=== PATIENT | female | born 1985 | race Caucasian/White ===

== ENCOUNTER → 2018-01-20 09:01 | Outpatient (CLI) | payer OTHER, SELFPAY ==
[2018-01-20 09:21] LABS: Absolute Lymphocyte Count 1.64 X10^3/ul (0.83-4.51); Absolute Neutrophil Count 1.9 X10^3/uL (2.0-7.7); Basophil# 0.05 X10^3/uL; Basophil% 1.2 % (0-1); Eosinophil# 0.13 X10^3/uL; Eosinophils% 3.2 % (0-5); Hematocrit 42.1 % (37-47); Hemoglobin 13.7 g/dl (12.0-15.0); Lymphocyte # 1.64 X10^3/ul (4.0); Lymphocyte % 40.1 % (19-41); Mean Corp Hgb Conc 32.5 g/gl (32-36); Mean Corpuscular Hgb 28.9 pg (27.0-32.0); Mean Corpuscular Volume 88.8 fL (81-99); Mean Platelet Vol. 9.4 fl (6.2-12.0); Monocyte# 0.37 X10^3/uL; Neutrophil # 1.89 X10^3/uL (2.7-7.7); Neutrophil % 46.3 % (47-70); Platelet Count 256 K/mm3 (150-450); RBC Distribution Width CV 12.9 % (11.6-14.6); RBC Distribution Width SD 41.7 fl (35.1-43.9); Red Blood Count 4.74 M/mm3 (4.2-5.4); White Blood Count 4.1 K/mm3 (4.4-11.0)
[2018-01-20 09:22] LABS: POSITIVE COUNT NO; POSITIVE DIFFERENTIAL NO; POSITIVE MORPHOLOGY NO
[2018-01-20 09:45] LABS: Estradiol 81.4 pg/mL; Iron 80 ug/dL (50-170); Thyroid Stim Hormone (TSH) 1.94 uIU/mL (0.358-3.74)
[2018-01-21 08:39] LABS: DHEA Sulfate 180.7 ug/dL (84.8-378.0)
[2018-01-22 09:48] LABS: Progesterone Level 0.32 ng/mL (See Comment); Vitamin B12 309 pg/mL (211-911); Vitamin D,25 Hydroxy 22.4 ng/mL (29.95-100.01)
[2018-01-24 17:48] LABS: Ferritin 37 ng/mL (8-252)
== END ==
PROVIDERS: Family Provider Family Medicine; PCP Family Medicine; Visit Provider Obstetrics & Gynecology
DX: E53.8 Deficiency of other specified B group vitamins (principal); R53.83 Other fatigue; R68.82 Decreased libido; Z09 Encounter for follow-up examination after completed treatment for conditions other than malignant neoplasm
CPT/HCPCS: 82306; 82533; 82607; 82627; 82670; 82728; 83540; 84144; 84403; 84443; 85025; 82626

== ENCOUNTER → 2018-02-28 20:00 | Outpatient (CLI) | payer OTHER, SELFPAY | PROVIDERS: Family Provider Family Medicine; PCP Family Medicine; Visit Provider Family Medicine | DX: G47.10 Hypersomnia, unspecified (principal) | CPT/HCPCS: 95810 ==

== ENCOUNTER → 2018-03-20 08:38 | Outpatient (CLI) | payer OTHER, SELFPAY ==
--- NOTE | 2018-03-20 08:45 | RAD_ITS ---
STUDY: X-RAY - ACUTE ABDOMINAL SERIES REASON FOR EXAM: Female, 33 years old. Abdominal pain and bloating. TECHNIQUE: Single view of the chest. Supine, and erect view(s) of the abdomen were obtained. COMPARISON: CT scan 12/17/2016. FINDINGS: The lungs are clear and expanded. Normal size heart. Normal mediastinum and luci. Normal visualized pulmonary arteries. Normal visualized aortic arch and descending thoracic aorta. There is a non-specific bowel gas pattern. The soft tissue structures of the abdomen and pelvis are unremarkable. Normal visualized osseous structures. RAD/Acute Abdomen Inc Chest IMPRESSION: Normal x-ray examination of the chest, abdomen, and pelvis. Electronically Signed: Sourav Rome MD at 17:00 EDT , Service support ,
== END ==
PROVIDERS: Family Provider Family Medicine; PCP Family Medicine; Visit Provider Family Medicine
DX: R10.9 Unspecified abdominal pain (principal)
CPT/HCPCS: 74022

== ENCOUNTER → 2018-05-28 09:54 | Outpatient (CLI) | payer OTHER, SELFPAY ==
[2018-05-28 10:55] LABS: Progesterone Level 11.92 ng/mL (See Comment)
[2018-05-28 10:56] LABS: Estradiol 111.4 pg/mL
== END ==
PROVIDERS: Family Provider Family Medicine; PCP Family Medicine; Visit Provider Obstetrics & Gynecology
DX: N93.8 Other specified abnormal uterine and vaginal bleeding (principal); R68.82 Decreased libido
CPT/HCPCS: 36415; 82670; 84144

== ENCOUNTER → 2018-07-20 16:53 | Outpatient (CLI) | payer OTHER, SELFPAY ==
[2018-07-20 17:26] LABS: Hematocrit 41.6 % (37-47); Hemoglobin 13.8 g/dl (12.0-15.0); Mean Corp Hgb Conc 33.2 g/gl (32-36); Mean Corpuscular Hgb 29.9 pg (27.0-32.0); Mean Corpuscular Volume 90.2 fL (81-99); Mean Platelet Vol. 9.2 fl (6.2-12.0); Platelet Count 279 K/mm3 (150-450); RBC Distribution Width CV 12.8 % (11.6-14.6); RBC Distribution Width SD 41.9 fl (35.1-43.9); Red Blood Count 4.61 M/mm3 (4.2-5.4); White Blood Count 6.9 K/mm3 (4.4-11.0)
[2018-07-20 17:28] LABS: Scan Indicated on CBC? Y/N NO
[2018-07-20 18:02] LABS: Ferritin 44 ng/mL (8-252); Iron 88 ug/dL (50-170); Thyroid Stim Hormone (TSH) 1.91 uIU/mL (0.358-3.74); Vitamin B12 478 pg/mL (211-911); Vitamin D,25 Hydroxy 32.8 ng/mL (29.95-100.01)
== END ==
PROVIDERS: Family Provider Family Medicine; PCP Family Medicine; Visit Provider Family Medicine
DX: D64.9 Anemia, unspecified (principal); E55.9 Vitamin D deficiency, unspecified; E53.8 Deficiency of other specified B group vitamins; R53.83 Other fatigue
CPT/HCPCS: 36415; 82306; 82607; 82728; 83540; 84443; 85027

== ENCOUNTER → 2018-10-16 16:18 | Outpatient (CLI) | payer OTHER, SELFPAY ==
[2018-10-16 19:25] LABS: Absolute Lymphocyte Count 3.24 X10^3/ul (0.83-4.51); Absolute Neutrophil Count 4.3 X10^3/uL (2.0-7.7); Basophil# 0.08 X10^3/uL; Basophil% 0.9 % (0-1); Eosinophil# 0.11 X10^3/uL; Eosinophils% 1.3 % (0-5); Hematocrit 43.6 % (37-47); Immature Platelet Fraction 0.7 % (1.0-7.9); Lymphocyte # 3.24 X10^3/ul (4.0); Lymphocyte % 38.4 % (19-41); Mean Corp Hgb Conc 32.1 g/gl (32-36); Mean Corpuscular Hgb 29.5 pg (27.0-32.0); Mean Platelet Vol. 9.2 fl (6.2-12.0); Monocyte# 0.67 X10^3/uL; Monocyte% 7.9 % (0-10); Neutrophil # 4.32 X10^3/uL (2.7-7.7); Neutrophil % 51.4 % (47-70); Platelet Count 290 K/mm3 (150-450); RBC Distribution Width CV 12.6 % (11.6-14.6); RBC Distribution Width SD 42.4 fl (35.1-43.9); Red Blood Count 4.74 M/mm3 (4.2-5.4); Reticulocyte Count 1.32 % (0.5-1.5); White Blood Count 8.4 K/mm3 (4.4-11.0)
[2018-10-16 19:26] LABS: POSITIVE COUNT NO; POSITIVE DIFFERENTIAL NO; POSITIVE MORPHOLOGY NO
[2018-10-16 19:49] LABS: Prothrombin Time (Protime)PT. 12.8 SECONDS (11.7-14.9)
[2018-10-16 19:53] LABS: Erythrocyte Sedimentation Rate 2 mm/hr (0-20)
[2018-10-16 20:00] LABS: Vitamin B12 565 pg/mL (211-911); Vitamin D,25 Hydroxy 42.7 ng/mL (29.95-100.01)
[2018-10-16 20:08] LABS: ALB/GLOB Ratio 1.4 RATIO (0.9-2.4); AST(SGOT) 11 U/L (15-37); Alanine Aminotransfer ALT/SGPT 26 U/L (13-56); Alkaline Phosphatase 46 U/L (45-117); Anion Gap 9 (5-15); BUN 18 mg/dL (7-18); BUN/Creat Ratio 20.5 RATIO (10-20); Calcium,Total 8.8 mg/dL (8.5-10.1); Chloride 105 mmol/L (98-107); Creatinine, Serum 0.88 mg/dL (0.55-1.02); EST Glomerular Filtration Rate 79 mL/min (>60); Est Glom Filt Rate - Afr Amer 95 mL/min (>60); Ferritin 55 ng/mL (8-252); Globulin 2.9 g/dL (2.2-4.2); Glucose 67 mg/dL (74-106); Iron 113 ug/dL (50-170); Iron Binding Capacity,Total 304 ug/dL (250-450); Potassium 3.7 mmol/L (3.5-5.1); Protein, Total 6.9 g/dL (6.4-8.2); Sodium Level 144 mmol/L (136-145); Thyroid Stim Hormone (TSH) 1.83 uIU/mL (0.358-3.74)
--- OUTSIDE RECORDS SUMMARY | 2019-01-18 05:08 | XMS RPT_ITS ---
:1985 Author Organization [place] Support Name Relationship Address Phone BRADY, LORNE Unavailable [address] + [address] [place] [address] REINERS, BLANCA Unavailable [address] + [place] [address] SOEALOCSCH Unavailable [address] + [place] [address] DURSTINE, LORNE Unavailable [address] + [address] [place] [address] REINERS, BLANCA Unavailable [address] + [place] [address] SOEALOCSCH Unavailable [address] + [place] [address] DURSTINE, LORNE Unavailable [address] + [address] [place] [address] REINERS, BLANCA Unavailable [address] + [place] [address] SOEALOCSCH Unavailable [address] + [place] [address] DURSTINE, LORNE Unavailable [address] + [address] [place] [address] REINERS, BLANCA Unavailable [address] + [place] [address] SOEALOCSCH Unavailable [address] + [place] [address] DUNME Unavailable [address] + [place] [address] DURSTINE, LORNE Unavailable [address] + [address] [place] [address] REINERS, BLANCA Unavailable [address] + [place] [address] DUNME Unavailable [address] + [place] [address] DURSTINE, LORNE Unavailable [address] + [address] [place] [address] REINERS, BLANCA Unavailable [address] + [place] [address] DUNME Unavailable [address] + [place] [address] DURSTINE, LORNE Unavailable [address] + [address] [place] [address] REINERS, BLANCA Unavailable [address] + [place] [address] DUNME Unavailable [address] + [place] [address] DURSTINE, LORNE Unavailable [address] + [address] [place] [address] REINERS, BLANCA Unavailable [address] + [place] [address] Care Team Providers Name Role Phone CRISTINA GAMBOA Referring Unavailable CRISTINA GAMBOA Attending Unavailable ZACH CHEW Referring Unavailable CRISTINA GAMBOA Referring Unavailable BEE, CRISTINA Referring Unavailable BEE, FELICIANOMAN Referring Unavailable BEE, FELICIANOMAN Referring Unavailable CRISTINA GAMBOA Referring Unavailable Zach Chew Attending Unavailable Zach Chew Primary Care Unavailable Zach Chew Attending Unavailable Zach Chew Primary Care Unavailable Magalie Schwarz Attending Unavailable Zach Chew Primary Care Unavailable Magalie Schwarz Referring Unavailable Zach Chew Attending Unavailable Zach Chew Primary Care Unavailable Zach Chew Attending Unavailable Zach Chew Referring Unavailable Zach Chew Primary Care Unavailable Zach Chew Attending Unavailable Zach Chew Referring Unavailable Zach Chew Primary Care Unavailable Magalie Schwarz Attending Unavailable Magalie Schwarz Referring Unavailable Zach Chew Primary Care Unavailable Zach Chew Attending Unavailable Zach Chew Referring Unavailable Zach Chew Primary Care Unavailable [employer] Unavailable PROBLEMS PROBLEMS DATE TYPE CONDITION / CODE ATTENDING STATUS SOURCE 11/20/2018 Active Other iron NA Active [place] [facility] deficiency anemias [facility] / D50.8(ICD-10) [place] Repository 11/01/2018 Active Anemia, NA Active [facility] unspecified / Clinic Main D64.9(ICD-10) [place] Rep[facility] 11/01/2018 Active Vitamin B12 NA Active [facility] deficiency anemia, Clinic Main unspecified / [place] D51.9(ICD-10) Repository 11/01/2018 Active Hemorrhage, not NA Active [facility] elsewhere Clinic Main classified / [place] R58(ICD-10) Repository 10/25/2018 Unknown E16.2 - [place], Active [place] Hypoglycemia, [facility] unspecified / Hospital E16.2(ICD-10) Repository 07/20/2018 Unknown R53.83 - Other [place], Active [place] [facility] R53.83(ICD-10) Hospital Repository 07/20/2018 Unknown 780.79 - Other [place], Active [place] malaise [facility] 780.79(ICD-9) Repository 07/20/2018 Unknown D64.9 - Anemia, [place], Active [place] unspecified [facility] D64.9(ICD-10) Hospital Repository 07/20/2018 Unknown 285.9 - Anemia, [place], Active [place] unspecified / [facility] 285.9(ICD-9) Hospital Repository 07/20/2018 Unknown E55.9 - Vitamin D [place], Active [place] deficiency, [facility] E55.9(ICD-10) Repository 07/20/2018 Unknown 268.9 - [place], Active [place] Unspecified [facility] vitamin D Hospital deficiency / Repository 268.9(ICD-9) 07/20/2018 Unknown E53.8 - Deficiency [place], Active [place] of other specified [facility] B group vitamins / Hospital E53.8(ICD-10) Repository 07/20/2018 Unknown 266.2 - Other [place], Active [place] B-complex [facility] deficiencies / Hospital 266.2(ICD-9) Repository 05/28/2018 Unknown N93.8 - Other Magalie Schwarz Active [place] specified abnormal Community uterine and Hospital vaginal bleeding / Repository N93.8(ICD-10) 05/28/2018 Unknown R68.82 - Decreased Magalie Schwarz Active [place] libido / Community R68.82(ICD-10) Hospital Repository 03/20/2018 Unknown R10.9 - Jean Chew Unspecified [facility] abdominal pain / Hospital R10.9(ICD-10) Repository PROCEDURES PROCEDURES No Procedure Records FoundRESULTS RESULTS PROGRESS Observed: 11/01/2018 Status: COMPLETED Source: [place] 4:44 PM [facility] REPOSITORY HNO ID: [id number] Author: Cristina Gamboa Service: (none) Author Type: Physician Type: Progress Notes Filed: 11/02/2018 1:08 PM Note Text: Hematology and Medical Oncology PATIENT NAME: Sharyn Montez. CLINIC NO: [id number]. ATTENDING PHYSICIAN: Cristina Gamboa MD. DATE OF SERVICE:11/01/2018. DIAGNOSIS: History of iron deficiency anemia and spontaneous ecchymosis on her thighs. Consultation requested by Dr. Chew for an opinion regarding easy bruising. My final recommendations will be communicated back to the requesting physician by way of shared Medical record or letter to requesting physician via US mail. PERFORMANCE STATUS:100% HPI: This is a healthy 33-year-old lady with history of iron deficiency anemia and easy bruising. Patient had a partial hysterectomy several years ago for abnormal menstrual bleeding. she also had history of iron deficiency and vitamin B12 deficiency. She had GI evaluation 2 years ago with Drs. Villegas which included EGD and colonoscopy which were normal and she was negative for celiac disease. She noticed increased bruising after she was bitten at work by a patient last year. She also noticed spontaneous bruising mostly on the upper thighs in the last year. She is not taking aspirin or NSAIDs. She does not smoke or uses marijuana or illegal drugs. She does not even drink alcohol on a regular basis she has no history of thyroid disease, liver disease or hepatitis. She noted no other bleeding issues; epitaxis, bleeding gums, hematuria, hemoptysis, or rectal bleeding. She is on Progesterone and Sertraline. She is also concerned about an immature RET fraction AND immature platelet fraction on her lab tests; reticulocyte 1.3% ( normal ) MEDICATIONS: Current Outpatient Prescriptions: ferrous sulfate (IRON) 325 mg (65 mg iron) tablet Take 325 mg by mouth daily with breakfast. progesterone micronized (PROMETRIUM) 200 mg capsule Take 200 mg by mouth once daily. cholecalciferol (VITAMIN D-3) 5,000 unit tab Take 5,000 Units by mouth once daily. cyanocobalamin, vitamin B-12, (VITAMIN B-12 INJECTION) 1,000 mcg by INJECTION(UNSPECIFIED PARENTERAL ROUTES) route once every month. sertraline (ZOLOFT) 100 mg tablet Take 100 mg by mouth once daily. MONTELUKAST SODIUM (SINGULAIR ORAL) Take by mouth. levocetirizine dihydrochloride(XYZAL 5 MG TAB) Take one(1) tablet daily as needed. guaiFENesin (MUCINEX) 600 mg 12 hr tablet Take 2 tablets by mouth twice daily. (Patient not taking: Reported on 11/01/2018 ) budesonide(RHINOCORT AQUA 32 MCG/ACTUATION NASAL SPRAY) one to two sprays to each nostril once daily (Patient not taking: No sig reported) epinastine hcl(ELESTAT 0.05 % EYE DROPS) one to two drops to each eye twice daily as needed. (Patient not taking: No sig reported) No current facility-administered medications for this visit. . ALLERGIES: ALLERGIES Allergen Reactions - Amitriptyline Hcl Other: See Comments felt like a zombie - Environmental Aller* Cats, dogs, cattle, horses, dust mites, molds, trees, grasses, weeds, ragweed . PAST MEDICAL HISTORY: PAST MEDICAL HISTORY Diagnosis Date - Dysmenorrhea - External hemorrhoids without mention of complication - Hemorrhage of gastrointestinal tract, unspecified . PAST SURGICAL HISTORY: PAST SURGICAL HISTORY Procedure Laterality Date - ANESTH, SECTION - DANDC - HYSTERECTOMY HX - LAPAROSCOPY, SURGICAL, APPENDECTOMY 07/07/13 early appendicitis - NONE - SIGMOIDOSCOPY FLEX DIAG 04/27/09 - TUBAL LIGATION HX . FAMILY HISTORY: FAMILY HISTORY Problem Relation Age of Onset - Hyperlipidemia Mother - Hypertension Father - Hyperlipidemia Father - COPD Paternal Grandmother - Hypertension Paternal Grandfather - Cancer Maternal Grandfather kidney - Heart disease Maternal Grandfather - No Known Problems Sister - Cancer Maternal Grandmother uterine/stomach/bone . SOCIAL HISTORY:Social History Marital status: Spouse name: Lorne Years of education: Number of children: 0 Occupational History Occupation Employer Comment [employer]* [employer]* Social History Main Topics Smoking status: Former Smoker Packs/day: 0.50 Years: 7.00 Types: Cigarettes Smokeless tobacco: Never Used Alcohol use: No Drug use: No Sexual activity: Yes Partners with: Male control/protection: Pill REVIEW OF SYSTEMS: CONSTITUTIONAL: No fevers, chills, nightsweats, unintended weight loss HEENT: Denies frequent or severe heaches, nasal congestion/sinus symptoms, problematic allergy problems. EYES: No diplopia or blurry vision. CARDIOVASCULAR: No chest pain, dyspnea, palpitations, orthopnea, PND, ankle edema. PULM: No dyspnea, unexplained cough. GI: No dysphagia/odynophagia, problematic reflux, constipation, diarrhea, changes in stool habits, hematochezia, melena. : No new urinary complaints, including dysuria, gross hematuria or pyuria. NEURO: No new balance problems, peripheral weakness/paresthesias or numbness of concern. MUSC-SKEL: No new joint pain, swelling, or erythema. PSY: No concerns regarding depression, anxiety or panic. INTEGUMENTARY: No new skin changes (rash, new or changing mole, new growth) PHYSICAL EXAMINATION: 33-year-old well-nourished well-developed female in no acute distress BP 129/79 Pulse 97 Temp (Src) 98.7 (Temporal Artery) Ht 5' 3[verified by Joselin Best RN[ (1.60m) Wt 159 lb 8 oz (72.3kg) BMI 28.26 kg/(m2). HEENT: Head is normocephalic, atraumatic. Sclerae white, conjunctivae pink. PEERL. EOMs are intact. Oropharynx is benign. LYMPHATICS: There is no palpable adenopathy in the neck, supraclavicular region, axillae, or groin. LUNGS: Lungs are clear to percussion and auscultation. HEART: Heart is normal without murmurs, gallops, or rubs. ABDOMEN: Soft and nontender without organomegaly. No masses can be palpated. EXTREMITIES: Are without edema. no petechiae, small ecchymosis on her thighs NEUROLOGIC: Exam is physiologic LABORATORY DATA: Component Latest Ref Rng AND Units 11/01/2018 WBC, [place] 3.70 - 11.00 k/uL 5.65 RBC, [place] 3.90 - 5.20 m/uL 4.64 Hemoglobin, [place] 11.5 - 15.5 g/dL 13.9 Hematocrit, [place] 36.0 - 46.0 % 43.0 MCV, [place] 80.0 - 100.0 fL 92.7 MCH, [place] 26.0 - 34.0 pg 30.0 MCHC, [place] 30.5 - 36.0 g/dL 32.3 RDW, [place] 11.5 - 15.0 % 12.8 Platelet Cnt, [place] 150 - 400 k/uL 275 MPV, [place] 9.0 - 12.7 fL 9.1 Neut%, [place] % 51.0 Lymp%, [place] % 36.6 [place]%, [place] % 8.5 Eos%, [place] % 2.8 Baso%, [place] % 1.1 Abs Neut, [place] 1.45 - 7.50 k/uL 2.88 Abs Lymp, [place] 1.00 - 4.00 k/uL 2.07 Abs [place], [place] <0.87 k/uL 0.48 Abs Eos, [place] <0.46 k/uL 0.16 Abs Baso, [place] <0.11 k/uL 0.06 Component Latest Ref Rng AND Units 11/01/2018 Albumin 3.9 - 4.9 g/dL 4.4 Bilirubin, Total 0.2 - 1.3 mg/dL 0.5 Bilirubin, Conjug <0.2 mg/dL <0.2 Alkaline Phosphatase 34 - 123 U/L 50 AST 13 - 35 U/L 36 (H) ALT 7 - 38 U/L 27 Protein, Total 6.3 - 8.0 g/dL 6.7 Fib Clot 200 - 400 mg/dL 306 Hep C Antibody IA Negative Negative PT/INR 12.8/1.0, PTT 27.0 vitamin B12 478, TSH 1.91, iron 88, ferritin 44; Vitamin D 25 is 32.8 ASSESSMENT: 33-year-old female with spontaneous ecchymosis on both upper thighs consistent with repeated trauma. There is no evidence of coagulopathy, factor deficiency or platelet dysfunction. She has a normal reticulocyte count, and low immature RET AND PLT fraction are normal with normal CBC. However, increased bruising may be side- effects of medications; Progesterone and Sertraline. She is not at risk for spontaneous or internal bleeding. - localizing ecchymosis likely secondary to repeat trauma to her thighs causing spontaneous rupture of capillaries / superficial blood vessels. 2. history of anemia secondary to iron deficiency and vitamin B12 deficiency - Resolved on replacement. PLAN: - additional tests requested including: fibrinogen, liver function and hepatitis C antibody - Avoid aspirin - Check Hemoccult stool x 3 - If all her tests are normal, then no further evaluation is needed. - Follow-up with Dr. Villegas if her stool is heme occult positive. Continue iron supplement and vitamin B12 injection for her anemia. I spent 45 minutes in the visit, with more than 50% of the total [id number] time of the visit in counseling / coordination of care. Cristina Gamboa MD. ELECTRONICALLY SIGNED Cc: Dr. Ronald ZAMARRIPA CBC AND DIFF Collected: 11/01/2018 Status: F Source: [place] 4:10 PM [facility] REPOSITORY TYPE CODE TESTS RESULT OUT OF REFERENCE UNITS RANGE LAB WWBC 3.70-11.00 k/uL [place] WBC 5.65 LAB WRBC 3.90-5.20 m/uL [place] RBC 4.64 LAB WHGB 11.5-15.5 g/dL [place] Hemoglobin 13.9 LAB WHCT 36.0-46.0 % [place] Hematocrit 43.0 LAB WMCV 80.0-100.0 fL [place] MCV 92.7 LAB WMCH 26.0-34.0 pg [place] MCH 30.0 LAB WMCHC 30.5-36.0 g/dL [place] MCHC 32.3 LAB WRDW 11.5-15.0 % [place] RDW 12.8 LAB WPLT 150-400 k/uL [place] Platelet Cnt 275 LAB WMPV 9.0-12.7 fL [place] MPV 9.1 Result Comment: Test performed at: [facility] [place], [address] [place] [address]. LAB WNEUT % [place] Neut% 51.0 LAB WLYMP % [place] Lymp% 36.6 LAB WMONOC % [place]% 8.5 LAB WEOS % [place] Eos% 2.8 LAB WBASO % [place] Baso% 1.1 LAB WANEUT 1.45-7.50 k/uL [place] Abs Neut 2.88 LAB WALYMP 1.00-4.00 k/uL [place] Abs Lymp 2.07 LAB WAMONO <0.87 k/uL [place] Abs [place] 0.48 LAB WAEOS <0.46 k/uL [place] Abs Eos 0.16 LAB WABASO <0.11 k/uL [place] Abs Baso 0.06 HEPATIC FUNCTN PANEL Collected: 11/01/2018 Status: F Source: [place] 4:10 PM [facility] REPOSITORY TYPE CODE TESTS RESULT OUT OF REFERENCE UNITS RANGE LAB ALB 3.9-4.9 g/dL Albumin 4.4 LAB TBIL 0.2-1.3 mg/dL Bilirubin, Total 0.5 LAB CBIL <0.2 mg/dL Bilirubin,Conjuga <0.2 debbie LAB ALKP 34-123 U/L Alkaline Phosphatase 50 LAB AST 13-35 U/L AST High 36 LAB ALT 7-38 U/L ALT 27 LAB TP 6.3-8.0 g/dL Protein, Total 6.7 STAFF REV W CBCDIF Collected: 11/01/2018 Status: F Source: [place] 4:10 PM [facility] REPOSITORY TYPE CODE TESTS RESULT OUT OF REFERENCE UNITS RANGE LAB WBC 3.70-11.00 k/uL WBC 5.03 LAB RBC 3.90-5.20 m/uL RBC 4.66 LAB HGB 11.5-15.5 g/dL Hemoglobin 14.1 LAB HCT 36.0-46.0 % Hematocrit 43.3 LAB MCV 80.0-100.0 fL MCV 92.9 LAB MCH 26.0-34.0 pG MCH 30.3 LAB MCHC 30.5-36.0 g/dL MCHC 32.6 LAB RDWCV 11.5-15.0 % RDW-CV 12.2 LAB PLTCT 150-400 k/uL Platelet Count 297 LAB MPV 9.0-12.7 fL MPV 9.8 LAB ANEUT % Neut% 50.8 LAB AANEUT 1.45-7.50 k/uL Abs Neut 2.55 LAB ALYMP % Lymph% 36.4 LAB AALYMP 1.00-4.00 k/uL Abs Lymph 1.83 LAB AMONO % [place]% 8.0 LAB AAMONO <0.87 k/uL Abs [place] 0.40 LAB AEOS % Eosin% 3.6 LAB AAEOS <0.46 k/uL Abs Eosin 0.18 LAB ABASO % Baso% 1.2 LAB AABASO <0.11 k/uL Abs Baso 0.06 LAB AUNRBC 0 /100 WBC NRBCs 0.0 LAB ABNRBC <0.01 k/uL Absolute nRBC <0.01 LAB DTYP DTYPE Auto Diff LAB SREVW Staff Review SEE COMMENT Result Comment: The Staff Review on this sample was cancelled because the hematology analyzer did not flag any parameters as requiring manual review. If there is a specific clinical concern for which yo u would like a staff pathologist to review the blood smear, please call Lab Client Services within 28 days. Account Credited LAB SRPATH Pathologist The Staff Review on this sample was cancelled because the hematology analyzer did not flag any parameters as requiring manual review. If there is a specific clinical concern for which you would like a staff pathologist to review the blood smear, please call Lab Client Services within 28 days. Result Comment: Account Credited Performed By: #### STREV #### [facility] Your Office Agent [address] [address] FIBRINOGEN Collected: 11/01/2018 Status: F Source: [place] 4:10 PM [facility] REPOSITORY TYPE CODE TESTS RESULT OUT OF REFERENCE UNITS RANGE LAB FIBCT 200-400 mg/dL Fibrinogen 306 Performed By: #### FIBCT, AHCV #### [facility] [address] [address] HEPATITIS C AB IA Collected: 11/01/2018 Status: F Source: [place] 4:10 PM [facility] REPOSITORY TYPE CODE TESTS RESULT OUT OF REFERENCE UNITS RANGE LAB AHCV Negative Hepatitis C Ab Negative IA Performed By: #### FIBCT, AHCV #### [place] [id number] [place] [address] CNOVSP Observed: 11/01/2018 Status: COMPLETED Source: [place] 4:00 PM [facility] REPOSITORY Visit (SP) Office ([facility]MA[place]) SHARYN MONTEZ ([id number]) 1985 F Date Time Provider Department 11/01/18 4:00 PM CRISTINA GAMBOA During your visit today, we recorded the following information about you: Temperature Pulse Blood pressure Weight 98.7 degrees 97/minute 129/79 72.3 kg Height 1.6 m Bonny Peters LPN 11/01/2018 4:25 PM Signed New patient. Discuss recent labs, anemia. Bonny Gamboa MD 11/02/2018 1:08 PM Signed Hematology and Medical Oncology PATIENT NAME: Sharyn [place]. CLINIC NO: [id number]. ATTENDING PHYSICIAN: Cristina Gamboa MD. DATE OF SERVICE:11/01/2018. DIAGNOSIS: History of iron deficiency anemia and spontaneous ecchymosis on her thighs. Consultation requested by Dr. Chew for an opinion regarding easy bruising. My final recommendations will be communicated back to the requesting physician by way of shared Medical record or letter to requesting physician via [place] mail. PERFORMANCE STATUS:100% HPI: This is a healthy 33-year-old lady with history of iron deficiency anemia and easy bruising. Patient had a partial hysterectomy several years ago for abnormal menstrual bleeding. she also had history of iron deficiency and vitamin B12 deficiency. She had GI evaluation 2 years ago with Drs. Villegas which included EGD and colonoscopy which were normal and she was negative for celiac disease. She noticed increased bruising after she was bitten at work by a patient last year. She also noticed spontaneous bruising mostly on the upper thighs in the last year. She is not taking aspirin or NSAIDs. She does not smoke or uses marijuana or illegal drugs. She does not even drink alcohol on a regular basis she has no history of thyroid disease, liver disease or hepatitis. She noted no other bleeding issues; epitaxis, bleeding gums, hematuria, hemoptysis, or rectal bleeding. She is on Progesterone and Sertraline. She is also concerned about an immature RET fraction AND immature platelet fraction on her lab tests; reticulocyte 1.3% ( normal ) MEDICATIONS: Current Outpatient Prescriptions: ferrous sulfate (IRON) 325 mg (65 mg iron) tablet Take 325 mg by mouth daily with breakfast. progesterone micronized (PROMETRIUM) 200 mg capsule Take 200 mg by mouth once daily. cholecalciferol (VITAMIN D-3) 5,000 unit tab Take 5,000 Units by mouth once daily. cyanocobalamin, vitamin B-12, (VITAMIN B-12 INJECTION) 1,000 mcg by INJECTION(UNSPECIFIED PARENTERAL ROUTES) route once every month. sertraline (ZOLOFT) 100 mg tablet Take 100 mg by mouth once daily. MONTELUKAST SODIUM (SINGULAIR ORAL) Take by mouth. levocetirizine dihydrochloride(XYZAL 5 MG TAB) Take one(1) tablet daily as needed. guaiFENesin (MUCINEX) 600 mg 12 hr tablet Take 2 tablets by mouth twice daily. (Patient not taking: Reported on 11/01/2018 ) budesonide(RHINOCORT AQUA 32 MCG/ACTUATION NASAL SPRAY) one to two sprays to each nostril once daily (Patient not taking: No sig reported) epinastine hcl(ELESTAT 0.05 % EYE DROPS) one to two drops to each eye twice daily as needed. (Patient not taking: No sig reported) No current facility-administered medications for this visit. . ALLERGIES: ALLERGIES Allergen Reactions - Amitriptyline Hcl Other: See Comments felt like a zombie - Environmental Aller* Cats, dogs, cattle, horses, dust mites, molds, trees, grasses, weeds, ragweed . PAST MEDICAL HISTORY: PAST MEDICAL HISTORY Diagnosis Date - Dysmenorrhea - External hemorrhoids without mention of complication - Hemorrhage of gastrointestinal tract, unspecified . PAST SURGICAL HISTORY: PAST SURGICAL HISTORY Procedure Laterality Date - ANESTH, SECTION - DANDC - HYSTERECTOMY HX - LAPAROSCOPY, SURGICAL, APPENDECTOMY 07/07/13 early appendicitis - NONE - SIGMOIDOSCOPY FLEX DIAG 04/27/09 - TUBAL LIGATION HX . FAMILY HISTORY: FAMILY HISTORY Problem Relation Age of Onset - Hyperlipidemia Mother - Hypertension Father - Hyperlipidemia Father - COPD Paternal Grandmother - Hypertension Paternal Grandfather - Cancer Maternal Grandfather kidney - Heart disease Maternal Grandfather - No Known Problems Sister - Cancer Maternal Grandmother uterine/stomach/bone . SOCIAL HISTORY:Social History Marital status: Spouse name: Lorne Years of education: Number of children: 0 Occupational History Occupation Employer Comment [employer]* [employer]* Social History Main Topics Smoking status: Former Smoker Packs/day: 0.50 Years: 7.00 Types: Cigarettes Smokeless tobacco: Never Used Alcohol use: No Drug use: No Sexual activity: Yes Partners with: Male control/protection: Pill REVIEW OF SYSTEMS: CONSTITUTIONAL: No fevers, chills, nightsweats, unintended weight loss HEENT: Denies frequent or severe heaches, nasal congestion/sinus symptoms, problematic allergy problems. EYES: No diplopia or blurry vision. CARDIOVASCULAR: No chest pain, dyspnea, palpitations, orthopnea, PND, ankle edema. PULM: No dyspnea, unexplained cough. GI: No dysphagia/odynophagia, problematic reflux, constipation, diarrhea, changes in stool habits, hematochezia, melena. : No new urinary complaints, including dysuria, gross hematuria or pyuria. NEURO: No new balance problems, peripheral weakness/paresthesias or numbness of concern. MUSC-SKEL: No new joint pain, swelling, or erythema. PSY: No concerns regarding depression, anxiety or panic. INTEGUMENTARY: No new skin changes (rash, new or changing mole, new growth) PHYSICAL EXAMINATION: 33-year-old well-nourished well-developed female in no acute distress BP 129/79 Pulse 97 Temp (Src) 98.7 (Temporal Artery) Ht 5' 3[verified by Joselin Best RN[ (1.60m) Wt 159 lb 8 oz (72.3kg) BMI 28.26 kg/(m2). HEENT: Head is normocephalic, atraumatic. Sclerae white, conjunctivae pink. PEERL. EOMs are intact. Oropharynx is benign. LYMPHATICS: There is no palpable adenopathy in the neck, supraclavicular region, axillae, or groin. LUNGS: Lungs are clear to percussion and auscultation. HEART: Heart is normal without murmurs, gallops, or rubs. ABDOMEN: Soft and nontender without organomegaly. No masses can be palpated. EXTREMITIES: Are without edema. no petechiae, small ecchymosis on her thighs NEUROLOGIC: Exam is physiologic LABORATORY DATA: Component Latest Ref Rng AND Units 11/01/2018 WBC, [place] 3.70 - 11.00 k/uL 5.65 RBC, [place] 3.90 - 5.20 m/uL 4.64 Hemoglobin, [place] 11.5 - 15.5 g/dL 13.9 Hematocrit, [place] 36.0 - 46.0 % 43.0 MCV, [place] 80.0 - 100.0 fL 92.7 MCH, [place] 26.0 - 34.0 pg 30.0 MCHC, [place] 30.5 - 36.0 g/dL 32.3 RDW, [place] 11.5 - 15.0 % 12.8 Platelet Cnt, [place] 150 - 400 k/uL 275 MPV, [place] 9.0 - 12.7 fL 9.1 Neut%, [place] % 51.0 Lymp%, [place] % 36.6 [place]%, [place] % 8.5 Eos%, [place] % 2.8 Baso%, [place] % 1.1 Abs Neut, [place] 1.45 - 7.50 k/uL 2.88 Abs Lymp, Albers 1.00 - 4.00 k/uL 2.07 Abs [place], [place] <0.87 k/uL 0.48 Abs Eos, Albers <0.46 k/uL 0.16 Abs Baso, Al[place] <0.11 k/uL 0.06 Component Latest Ref Rng AND Units 11/01/2018 Albumin 3.9 - 4.9 g/dL 4.4 Bilirubin, Total 0.2 - 1.3 mg/dL 0.5 Bilirubin, Conjug <0.2 mg/dL <0.2 Alkaline Phosphatase 34 - 123 U/L 50 AST 13 - 35 U/L 36 (H) ALT 7 - 38 U/L 27 Protein, Total 6.3 - 8.0 g/dL 6.7 Fib Clot 200 - 400 mg/dL 306 Hep C Antibody IA Negative Negative PT/INR 12.8/1.0, PTT 27.0 vitamin B12 478, TSH 1.91, iron 88, ferritin 44; Vitamin D 25 is 32.8 ASSESSMENT: 33-year-old female with spontaneous ecchymosis on both upper thighs consistent with repeated trauma. There is no evidence of coagulopathy, factor deficiency or platelet dysfunction. She has a normal reticulocyte count, and low immature RET AND PLT fraction are normal with normal CBC. However, increased bruising may be side- effects of medications; Progesterone and Sertraline. She is not at risk for spontaneous or internal bleeding. - localizing ecchymosis likely secondary to repeat trauma to her thighs causing spontaneous rupture of capillaries / superficial blood vessels. 2. history of anemia secondary to iron deficiency and vitamin B12 deficiency - Resolved on replacement. PLAN: - additional tests requested including: fibrinogen, liver function and hepatitis C antibody - Avoid aspirin - Check Hemoccult stool x 3 - If all her tests are normal, then no further evaluation is needed. - Follow-up with Dr. Villegas if her stool is heme occult positive. Continue iron supplement and vitamin B12 injection for her anemia. I spent 45 minutes in the visit, with more than 50% of the total [id number]-[id number] time of the visit in counseling / coordination of care. Cristina Gamboa MD. ELECTRONICALLY SIGNED Cc: Dr. Ronald Villegas Referring Provider: ZACH CHEW [[id number]] Allergies As of Date: 11/01/2018 Noted Allergy Reaction AMITRIPTYLINE HCL 11/01/2018 14 - Other: See Comments Comments: felt like a zombie Environmental allergies [Other] 04/09/2009 Comments: Cats, dogs, cattle, horses, dust mites, molds, trees, grasses, weeds, ragweed Date Reviewed: 11/01/2018 Reviewed by: Bonny Peters LPN - Fully Assessed Reason for Visit: New Patient [172] Primary Visit Diagnosis:Ecchymosis [R58] Other Visit Diagnoses:Iron deficiency anemia secondary to inadequate dietary iron intake [D50.8] Anemia due to vitamin B12 deficiency, unspecified B12 deficiency type [D51.9] Order(s):OCCULT BLD EXAM-DIAG [SQOB] Order #: [id number] STANDING HEPATIC FUNCTION PNL [SQHFP] Order #: [id number] FUTURE FIBRINOGEN [SQFIBCT] Order #: [id number] FUTURE HEP C AB IA BLOOD [SQAHCV] Order #: [id number] FUTURE Level of Service: NEW PATIENT VISIT LEVEL 4 [[id number]] Disposition: Return if symptoms worsen or fail to improve. Follow-up and Disposition History Recorded Prescriptions as of 11/01/2018 Sig: FERROUS SULFATE 325 MG (65 MG* Take 325 mg by mouth daily wi* PROGESTERONE MICRONIZED 200 M* Take 200 mg by mouth once dorian* CHOLECALCIFEROL (VITAMIN D3) * Take 5,000 Units by mouth onc* VITAMIN B-12 INJECTION 1,000 mcg by INJECTION(UNSPEC* SERTRALINE 100 MG TABLET Take 100 mg by mouth once dorian* SINGULAIR ORAL Take by mouth. * XYZAL 5 MG TABLET Take one(1) tablet daily as n* GUAIFENESIN ER 600 MG TABLET,* Take 2 tablets by mouth twice* Patient not taking: Reported on 11/01/2018 RHINOCORT AQUA 32 MCG/ACTUATI* one to two sprays to each nos* Patient not taking: No sig reported * ELESTAT 0.05 % EYE DROPS one to two drops to each eye * Patient not taking: No sig reported Medication notes this encounter SERTRALINE 100 MG TABLET >> Bonny Peters LPN 11/01/2018 4:17 PM >> BONNY PETERS LPN [facility] Nov 01, 2018 4:17 PM Taking 25 mg once a day SINGULAIR ORAL >> Bonny Peters LPN 11/01/2018 4:17 PM >> BONNY PETERS LPN [place] Nov 01, 2018 4:17 PM 10 mg XYZAL 5 MG TABLET >> Bonny Peters LPN 11/01/2018 4:17 PM >> BONNY PETERS LPN [place] Nov 01, 2018 4:17 PM Taking once a day Problem List As Of Date 11/01/2018 Noted Resolved 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 Discuss recent labs, anemia. Bonny Peters LPN Encounter Status:Closed by CRISTINA GAMBOA MD on 11/02/18 2 HR GLUCOSE TOLERANCE Collected: 11/01/2018 Status: F Source: [facility] TEST 10:07 AM [facility] REPOSITORY Order Comment: Is Patient Fasting? Y TYPE CODE TESTS RESULT OUT OF RANGE REFERENCE UNITS LAB L501.0520 74-106 mg/dL Normal GLU 85 GTT-FASTING Result Comment: GLUCOSE TOLERANCE TEST Reference Interval Non- Adults Fasting 74 - 106 30 minutes 110 - 170 1 hour 120 - 170 2 hour 74 - 120 3 hour 74 - 106 4 hour 74 - 106 5 hour 74 - 106 LAB L501.0630 110-170 mg/dL Low GLU GTT-30 min. 100 LAB L501.0540 120-170 mg/dL Low GLU GTT-1 HOUR 90 LAB L501.0550 70-120 mg/dL Normal GLU GTT-2 HOUR 77 Performed By: #### L500.4600 #### [facility] [place], [address] CBC W/DIFF, AUTOMATED Collected: 10/16/2018 Status: F Source: [place] 4:20 PM [facility] REPOSITORY TYPE CODE TESTS RESULT OUT OF RANGE REFERENCE UNITS LAB L100.1000 4.4-11.0 K/mm3 Normal WBC 8.4 LAB L100.1200 4.2-5.4 M/mm3 Normal RBC 4.74 LAB L100.1300 12.0-15.0 g/dl Normal HGB 14.0 LAB L100.1400 37-47 % Normal HCT 43.6 LAB L100.1500 81-99 fL Normal MCV 92.0 LAB L100.1600 27.0-32.0 pg Normal MCH 29.5 LAB L100.1700 32-36 g/gl Normal MCHC 32.1 LAB L100.1810 11.6-14.6 % Normal RDW CV 12.6 LAB L100.1820 35.1-43.9 fl Normal RDW SD 42.4 LAB L100.1900 150-450 K/mm3 Normal PLT 290 LAB L100.2000 6.2-12.0 fl Normal MPV 9.2 LAB L100.2100 47-70 % Normal NEUT% 51.4 LAB L100.2200 19-41 % Normal LY% 38.4 LAB L100.2300 0-10 % Normal MONO% 7.9 LAB L100.2400 0-5 % Normal EO% 1.3 LAB L100.2500 0-1 % Normal BASO% 0.9 LAB L100.2550 0.0-0.9 % Normal IM GRAN % 0.100 Result Comment: IG% - Immature Granulocytes (promyelocytes, myelocytes and metamyelocytes) > 1% indicates that a LEFT SHIFT is Present. LAB L100.2620 2.0-7.7 X10 3/uL Normal Absolute Neut 4.3 LAB L100.2720 0.83-4.51 X10 3/ul Normal Absolute Lymph 3.24 Performed By: #### L100.0100, L100.9950, L101.9900, L503.0105, L506.1000, L500.4050, L501.9520, L503.6075, L503.6150, L503.6550, L506.0250 #### [facility] [address] [place], [place], [id number] RETIC PANEL Collected: 10/16/2018 Status: F Source: [place] 4:20 PM [facility] REPOSITORY TYPE CODE TESTS RESULT OUT OF RANGE REFERENCE UNITS LAB L101.0000 0.5-1.5 % Normal RETIC 1.32 LAB L101.0060 3.00-15.90 % Low IM RET FRACTION 2.60 LAB L101.0090 30-35 pg Normal RET-HE 33.0 LAB L101.0110 1.0-7.9 % Low IPF 0.7 Result Comment: Low PLT + Low IPF suggest a bone marrow production disorder Low PLT + high IPF suggests peripheral destruction (e.g.ITP, TTP, HIT, DIC, autoimmune) or bone marrow recovery Trending of serial IPF measurements is recommended when evaluating for bone marrow respones Value above normal range indicates an increase in RBC cellular response from bone marrow. Performed By: #### L100.0100, L100.9950, L101.9900, L503.0105, L506.1000, L500.4050, L501.9520, L503.6075, L503.6150, L503.6550, L506.0250 #### [facility] [address] [place], [place], [id number] ERYTHROCYTE SED RATE Collected: 10/16/2018 Status: F Source: [place] 4:20 PM [facility] REPOSITORY TYPE CODE TESTS RESULT OUT OF RANGE REFERENCE UNITS LAB L102.0000 0-20 mm/hr Normal SED RATE 2 Performed By: #### L100.0100, L100.9950, L101.9900, L503.0105, L506.1000, L500.4050, L501.9520, L503.6075, L503.6150, L503.6550, L506.0250 #### [facility] [address] [place], [address] VITAMIN B12 Collected: 10/16/2018 Status: F Source: [place] 4:20 PM [facility] REPOSITORY TYPE CODE TESTS RESULT OUT OF RANGE REFERENCE UNITS LAB L503.0105 211-911 pg/mL Normal Vitamin B12 565 Performed By: #### L100.0100, L100.9950, L101.9900, L503.0105, L506.1000, L500.4050, L501.9520, L503.6075, L503.6150, L503.6550, L506.0250 #### [facility] [address] [place], [place], [id number] VITAMIN D,25 HYDROXY Collected: 10/16/2018 Status: F Source: [place] 4:20 PM [facility] REPOSITORY TYPE CODE TESTS RESULT OUT OF RANGE REFERENCE UNITS LAB L506.1000 29.95-100.01 ng/mL Normal Vitamin D 42.7 25-OH Result Comment: Vitamin D 25(OH) Status Range Deficiency <20 ng/mL (50nmol/L) Insuffciency 20 - 30 ng/mL (50 - 75 nmol/L) Sufficiency 30 - 100 ng/mL (75 - 250 nmol/L) Toxicity >100 ng/mL (>250 nmol/L) Performed By: #### L100.0100, L100.9950, L101.9900, L503.0105, L506.1000, L500.4050, L501.9520, L503.6075, L503.6150, L503.6550, L506.0250 #### [facility] [address] [place], [place], [address] COMPREHENSIVE METABOLIC Collected: 10/16/2018 Status: F Source: [facility] 4:20 PM [facility] REPOSITORY Order Comment: Is Patient Taking Vitamins or Folic Acid Supplements? N TYPE CODE TESTS RESULT OUT OF RANGE REFERENCE UNITS LAB L501.0100 74-106 mg/dL Low GLU 67 Result Comment: Please note revised GLUCOSE reference range effective 2017. LAB L501.1000 7-18 mg/dL Normal BUN 18 LAB L501.1100 0.55-1.02 mg/dL Normal CREAT,SERUM 0.88 Result Comment: The validity of the calculated GFR AND GFRAA in patients over 70 years has not been determined. Clinical correlation is essential. LAB L501.1110 >60 mL/min Normal EST GFR 79 Result Comment: Non- GFR Calc LAB L501.1115 >60 mL/min Normal EST GFR - AA 95 Result Comment: GFR Calc LAB L501.1300 10-20 RATIO High BUN/CRE 20.5 LAB L501.1500 6.4-8.2 g/dL T Normal PROT 6.9 LAB L501.1800 3.2-5.0 g/dL Normal ALB 4.0 LAB L501.1950 2.2-4.2 g/dL Normal GLOB 2.9 LAB L501.2000 0.9-2.4 RATIO Normal A/G 1.4 LAB L501.2200 8.5-10.1 mg/dL CA Normal 8.8 LAB L501.4100 15-37 U/L Low AST 11 LAB L501.4305 45-117 U/L Normal ALK P 46 LAB L501.4405 13-56 U/L Normal ALT 26 LAB L501.4600 0.20-1.00 mg/dL T Normal BILI 0.40 LAB L501.5300 136-145 mmol/L NA Normal 144 LAB L501.5600 3.5-5.1 mmol/L K Normal 3.7 LAB L501.5900 98-107 mmol/L CL Normal 105 LAB L501.6100 21.0-32.0 mmol/L Normal CO2 30.0 LAB L501.6200 5-15 Normal GAP 9 Performed By: #### L100.0100, L100.9950, L101.9900, L503.0105, L506.1000, L500.4050, L501.9520, L503.6075, L503.6150, L503.6550, L506.0250 #### [facility] [address] [place], [place], [address] THYROID STIM HORMONE Collected: 10/16/2018 Status: F Source: [facility] (TSH) 4:20 PM [facility] REPOSITORY Order Comment: Is Patient Taking Vitamins or Folic Acid Supplements? N TYPE CODE TESTS RESULT OUT OF RANGE REFERENCE UNITS LAB L501.9520 0.358-3.74 uIU/mL Normal TSH 1.83 Performed By: #### L100.0100, L100.9950, L101.9900, L503.0105, L506.1000, L500.4050, L501.9520, L503.6075, L503.6150, L503.6550, L506.0250 #### [facility] [address] [place], [place], [id number] IRON BINDING Collected: 10/16/2018 Status: F Source: [facility] 4:20 PM [facility] REPOSITORY Order Comment: Is Patient Taking Vitamins or Folic Acid Supplements? N TYPE CODE TESTS RESULT OUT OF RANGE REFERENCE UNITS LAB L503.6075 250-450 ug/dL Normal TIBC 304 Performed By: #### L100.0100, L100.9950, L101.9900, L503.0105, L506.1000, L500.4050, L501.9520, L503.6075, L503.6150, L503.6550, L506.0250 #### [facility] [address] [place], [address] IRON Collected: 10/16/2018 Status: F Source: [facility] 4:20 PM [facility] REPOSITORY Order Comment: Is Patient Taking Vitamins or Folic Acid Supplements? N TYPE CODE TESTS RESULT OUT OF RANGE REFERENCE UNITS LAB L503.6150 50-170 ug/dL Normal IRON 113 Performed By: #### L100.0100, L100.9950, L101.9900, L503.0105, L506.1000, L500.4050, L501.9520, L503.6075, L503.6150, L503.6550, L506.0250 #### [facility] [address] [place], [address] FERRITIN Collected: 10/16/2018 Status: F Source: [place] 4:20 PM [facility] REPOSITORY Order Comment: Is Patient Taking Vitamins or Folic Acid Supplements? N TYPE CODE TESTS RESULT OUT OF RANGE REFERENCE UNITS LAB L503.6550 8-252 ng/mL Normal FERRITIN 55 Performed By: #### L100.0100, L100.9950, L101.9900, L503.0105, L506.1000, L500.4050, L501.9520, L503.6075, L503.6150, L503.6550, L506.0250 #### [facility] [address] [place], [address] FOLATES, (FOLIC ACID) Collected: 10/16/2018 Status: F Source: [place] 4:20 PM [facility] REPOSITORY Order Comment: Is Patient Taking Vitamins or Folic Acid Supplements? N TYPE CODE TESTS RESULT OUT OF RANGE REFERENCE UNITS LAB L506.0250 3.1-55.4 ng/mL Normal FOLATES 19.50 Performed By: #### L100.0100, L100.9950, L101.9900, L503.0105, L506.1000, L500.4050, L501.9520, L503.6075, L503.6150, L503.6550, L506.0250 #### [facility] [address] [place], [address] PROTHROMBIN TIME W/INR Collected: 10/16/2018 Status: F Source: [place] 4:20 PM [facility] REPOSITORY TYPE CODE TESTS RESULT OUT OF RANGE REFERENCE UNITS LAB L300.4150 11.7-14.9 SECONDS Normal PROTIME 12.8 LAB L300.4200 Normal INR 1.0 Performed By: #### L300.3900, L300.4310 #### [facility] [address] [place], [address] PARTIAL THROMBOPLAST Collected: 10/16/2018 Status: F Source: [facility] 4:20 PM [facility] REPOSITORY TYPE CODE TESTS RESULT OUT OF RANGE REFERENCE UNITS LAB L300.4310 24.1-36.2 Seconds Normal PTT 27.0 Performed By: #### L300.3900, L300.4310 #### [facility] [address] [place], [place], [address] CBC-COMPLETE BLOOD CNT Collected: 07/20/2018 Status: F Source: [facility] NO DIFF 4:55 PM [facility] REPOSITORY Order Comment: Order Date: 07/18/18 Order Info: 18187-6 - CBC TYPE CODE TESTS RESULT OUT OF RANGE REFERENCE UNITS LAB L100.1000 4.4-11.0 K/mm3 Normal WBC 6.9 LAB L100.1200 4.2-5.4 M/mm3 Normal RBC 4.61 LAB L100.1300 12.0-15.0 g/dl Normal HGB 13.8 LAB L100.1400 37-47 % Normal HCT 41.6 LAB L100.1500 81-99 fL Normal MCV 90.2 LAB L100.1600 27.0-32.0 pg Normal MCH 29.9 LAB L100.1700 32-36 g/gl Normal MCHC 33.2 LAB L100.1810 11.6-14.6 % Normal RDW CV 12.8 LAB L100.1820 35.1-43.9 fl Normal RDW SD 41.9 LAB L100.1900 150-450 K/mm3 Normal PLT 279 LAB L100.2000 6.2-12.0 fl Normal MPV 9.2 Performed By: #### L100.0500, L501.9520, L503.6150, L503.6550, L503.0105, L506.1000 #### [facility] [address] [place], [place], [address] THYROID STIM HORMONE Collected: 07/20/2018 Status: F Source: [facility] (TSH) 4:55 PM [facility] REPOSITORY Order Comment: Order Date: 07/18/18 Order Info: 3016-3 - TSH Order Info: 2498-4 - FE Order Info: 2276-4 - HIREN TYPE CODE TESTS RESULT OUT OF RANGE REFERENCE UNITS LAB L501.9520 0.358-3.74 uIU/mL Normal TSH 1.91 Performed By: #### L100.0500, L501.9520, L503.6150, L503.6550, L503.0105, L506.1000 #### [facility] [address] [place], [place], [address] IRON Collected: 07/20/2018 Status: F Source: [place] 4:55 PM [facility] REPOSITORY Order Comment: Order Date: 07/18/18 Order Info: 3016-3 - TSH Order Info: 2494 - FE Order Info: 2275-4 - HIREN TYPE CODE TESTS RESULT OUT OF RANGE REFERENCE UNITS LAB L503.6150 50-170 ug/dL Normal IRON 88 Performed By: #### L100.0500, L501.9520, L503.6150, L503.6550, L503.0105, L506.1000 #### [facility] [facility] [place], [place], [address] FERRITIN Collected: 07/20/2018 Status: F Source: [place] 4:55 PM [facility] REPOSITORY Order Comment: Order Date: 07/18/18 Order Info: 3016-3 - TSH Order Info: 2498-01 - FE Order Info: 2275-4 - HIREN TYPE CODE TESTS RESULT OUT OF RANGE REFERENCE UNITS LAB L503.6550 8-252 ng/mL Normal FERRITIN 44 Performed By: #### L100.0500, L501.9520, L503.6150, L503.6550, L503.0105, L506.1000 #### [facility] [place], [place], [address] VITAMIN B12 Collected: 07/20/2018 Status: F Source: [place] 4:55 PM [facility] REPOSITORY Order Comment: Order Date: 07/18/18 Order Info: 2132-9 - B12 Order Info: 54401-8 - VITD25 TYPE CODE TESTS RESULT OUT OF RANGE REFERENCE UNITS LAB L503.0105 211-911 pg/mL Normal Vitamin B12 478 Performed By: #### L100.0500, L501.9520, L503.6150, L503.6550, L503.0105, L506.1000 #### [facility] [address] [place], [address] VITAMIN D,25 HYDROXY Collected: 07/20/2018 Status: F Source: [facility] 4:55 PM [facility] REPOSITORY Order Comment: Order Date: 07/18/18 Order Info: 2132-9 - B12 Order Info: 74408-3 - VITD25 TYPE CODE TESTS RESULT OUT OF RANGE REFERENCE UNITS LAB L506.1000 29.95-100.01 ng/mL Normal Vitamin D 32.8 25-OH Result Comment: Vitamin D 25(OH) Status Range Deficiency <20 ng/mL (50nmol/L) Insuffciency 20 - 30 ng/mL (50 - 75 nmol/L) Sufficiency 30 - 100 ng/mL (75 - 250 nmol/L) Toxicity >100 ng/mL (>250 nmol/L) Performed By: #### L100.0500, L501.9520, L503.6150, L503.6550, L503.0105, L506.1000 #### [facility] [address] [place], [address] PROGESTERONE LEVEL Collected: 05/28/2018 Status: F Source: [facility] 9:58 AM [facility] REPOSITORY TYPE CODE TESTS RESULT OUT OF REFERENCE UNITS RANGE LAB L509.4001 See Comment ng/mL Progesterone Normal 11.92 Result Comment: Progesterone Reference Table: UNITS Female: Follicular 0.15 - 1.40 ng/mL Luteal 3.34 - 25.56 ng/mL Mid-luteal 4.44 - 28.03 ng/mL Postmenopausal 0.0 - 0.73 ng/mL : 1st Trimester 11.22 - 90.00 ng/mL 2nd Trimester 25.55 - 89.40 ng/mL 3rd Trimester 48.40 -422.50 ng/mL Performed By: #### L509.4001 #### [facility] [address] [place], [address] ESTRADIOL Collected: 05/28/2018 Status: F Source: [facility] 9:58 AM [facility] REPOSITORY TYPE CODE TESTS RESULT OUT OF RANGE REFERENCE UNITS LAB L3300.1750 pg/mL Normal ESTRADIOL 111.4 Result Comment: NORMAL REFERENCE RANGES FEMALE FOLLICULAR 21.4 - 164.8 pg/mL MID-CYCLE PEAK 49.9 - 367.2 pg/mL LUTEAL 40.2 - 259.0 pg/mL POST-MENOPAUSAL ON MHT <11.0 - 462.1 pg/mL NOT ON MHT <11.0 - 58.3 pg/mL MALE <11.0 - 52.5 pg/mL NOTE: [facility] HAS CONFIRMED THE DRUG FULVETRANT (FASLODEX) MAY CAUSE FALSELY ELEVATED ESTRADIOL RESULTS WHEN USING THIS TEST METHOD. IF PATIENT IS TAKING FULVESTRANT AN ALTERNATIVE METHOD SHOULD BE USED TO DETERMINE ESTRADIOL CONCENTRATION. Performed By: #### L3300.1750 #### [facility] [address] [place], [address] ACUTE ABDOMEN INC Observed: 03/20/2018 Status: F Source: [facility] CHEST 8:45 AM [facility] REPOSITORY [facility] [address] [place] [address] Acute Abdomen Inc Chest MR#: [id number] Acct: [id number] Name: SHARYN MONTEZ Rep #: [id number] : 1985 F 33 From: Sourav Rome MD PCP: Zach Chew MD Status: REG CLI Study: Acute Abdomen Inc Chest Date of Exam: 03/20/18 Exam# [id number] Ordering Dr: Luis M Chew MD STUDY: X-RAY - ACUTE ABDOMINAL SERIES REASON FOR EXAM: Female, 33 years old. Abdominal pain and bloating. TECHNIQUE: Single view of the chest. Supine, and erect view(s) of the abdomen were obtained. COMPARISON: CT scan 12/17/2016. FINDINGS: The lungs are clear and expanded. Normal size heart. Normal mediastinum and luci. Normal visualized pulmonary arteries. Normal visualized aortic arch and descending thoracic aorta. There is a non-specific bowel gas pattern. The soft tissue structures of the abdomen and pelvis are unremarkable. Normal visualized osseous structures. RAD/Acute Abdomen Inc Chest IMPRESSION: Normal x-ray examination of the chest, abdomen, and pelvis. Electronically Signed: Sourav Rome MD at 17:00 EDT , Service support , CC: Zach Chew MD Chief Information Security Officer: Signed DHEA SULFATE Collected: 01/20/2018 Status: F Source: [facility] 9:07 AM [facility] REPOSITORY Order Comment: SALO ORDERED DHEA LIZBETH E2 PROG ALL OTHERS GO TO DR CHEW Has Patient had Radioactive Injection for X-ray?: N TYPE CODE TESTS RESULT OUT OF RANGE REFERENCE UNITS LAB L3300.1500 84.8-378.0 ug/dL Normal DHEA SULF 180.7 4020 Result Comment: Performed at: [facility] [id number] Forensic Accountant: Ronald Sunshine PhD, Phone: [phone] Performed By: #### L3300.1500 #### [facility] (refer to report for specific site) refer to report for address and phone number CBC W/DIFF, AUTOMATED Collected: 01/20/2018 Status: F Source: [facility] 9:05 AM [facility] REPOSITORY Order Comment: SALO ORDERED DHEA LIZBETH E2 PROG ALL OTHERS GO TO DR CHEW Order Date: 01/17/18 Order Info: 0184-1 - CBCD TYPE CODE TESTS RESULT OUT OF RANGE REFERENCE UNITS LAB L100.1000 4.4-11.0 K/mm3 Low WBC 4.1 LAB L100.1200 4.2-5.4 M/mm3 Normal RBC 4.74 LAB L100.1300 12.0-15.0 g/dl Normal HGB 13.7 LAB L100.1400 37-47 % Normal HCT 42.1 LAB L100.1500 81-99 fL Normal MCV 88.8 LAB L100.1600 27.0-32.0 pg Normal MCH 28.9 LAB L100.1700 32-36 g/gl Normal MCHC 32.5 LAB L100.1810 11.6-14.6 % Normal RDW CV 12.9 LAB L100.1820 35.1-43.9 fl Normal RDW SD 41.7 LAB L100.1900 150-450 K/mm3 Normal PLT 256 LAB L100.2000 6.2-12.0 fl Normal MPV 9.4 LAB L100.2100 47-70 % Low NEUT% 46.3 LAB L100.2200 19-41 % Normal LY% 40.1 LAB L100.2300 0-10 % Normal MONO% 9.0 LAB L100.2400 0-5 % Normal EO% 3.2 LAB L100.2500 0-1 % High BASO% 1.2 LAB L100.2550 0.0-0.9 % Normal IM GRAN % 0.200 Result Comment: IG% - Immature Granulocytes (promyelocytes, myelocytes and metamyelocytes) > 1% indicates that a LEFT SHIFT is Present. LAB L100.2620 2.0-7.7 X10 3/uL Low Absolute Neut 1.9 LAB L100.2720 0.83-4.51 X10 3/ul Normal Absolute Lymph 1.64 Performed By: #### L100.0100, L501.9520, L503.6150, L503.0105, L506.1000 #### [facility] [address] [place], [place], [id number] THYROID STIM HORMONE Collected: 01/20/2018 Status: F Source: [facility] (TSH) 9:05 AM [facility] REPOSITORY Order Comment: PLEASE ADD HIR[facility]OD [facility] E2 PROG ALL OTHERS GO TO DR CHEW Order Date: 01/17/18 Order Info: 3016-3 - TSH Order Info: 2498-4 - FE TYPE CODE TESTS RESULT OUT OF RANGE REFERENCE UNITS LAB L501.9520 0.358-3.74 uIU/mL Normal TSH 1.94 Performed By: #### L100.0100, L501.9520, L503.6150, L503.0105, L506.1000 #### [facility] [address] [place], [place], [address] IRON Collected: 01/20/2018 Status: F Source: [facility] 9:05 AM [facility] REPOSITORY Order Comment: PLEASE ADD HIREN TO BLOOD FROM 01-20-18 [facility]O ORDERED DHEA LIZBETH E2 PROG ALL OTHERS GO TO DR CHEW Order Date: 01/17/18 Order Info: 3016-3 - TSH Order Info: 2498-4 - FE TYPE CODE TESTS RESULT OUT OF RANGE REFERENCE UNITS LAB L503.6150 50-170 ug/dL Normal IRON 80 Performed By: #### L100.0100, L501.9520, L503.6150, L503.0105, L506.1000 #### [facility] [address] [place], [address] VITAMIN B12 Collected: 01/20/2018 Status: F Source: WILLIAMS 9:05 AM [facility] REPOSITORY Order Comment: SHAKIRENE ORDERED DHEA LIZBETH E2 PROG ALL OTHERS GO TO DR CHEW Order Date: 01/17/18 Order Info: 9 - B12 Order Info: 92670-7 - VITD25 TYPE CODE TESTS RESULT OUT OF RANGE REFERENCE UNITS LAB L503.0105 211-911 pg/mL Normal Vitamin B12 309 Performed By: #### L100.0100, L501.9520, L503.6150, L503.0105, L506.1000 #### [facility] [address] [place], [address] VITAMIN D,25 HYDROXY Collected: 01/20/2018 Status: F Source: ADAM 9:05 AM [facility] REPOSITORY Order Comment: SHAKIRENE ORDERED DHEA LIZBETH E2 PROG ALL OTHERS GO TO DR CHEW Order Date: 01/17/18 Order Info: 9 - B12 Order Info: 67955-0 - VITD25 TYPE CODE TESTS RESULT OUT OF REFERENCE UNITS RANGE LAB L506.1000 29.95-100.01 ng/mL Low Vitamin D 22.4 25-OH Result Comment: Vitamin D 25(OH) Status Range Deficiency <20 ng/mL (50nmol/L) Insuffciency 20 - 30 ng/mL (50 - 75 nmol/L) Sufficiency 30 - 100 ng/mL (75 - 250 nmol/L) Toxicity >100 ng/mL (>250 nmol/L) Performed By: #### L100.0100, L501.9520, L503.6150, L503.0105, L506.1000 #### [facility] [address] [place], [address] ESTRADIOL Collected: 01/20/2018 Status: F Source: ADAM 9:05 AM [facility] REPOSITORY Order Comment: PLEASE ADD HIREN TO BLOOD FROM 01-20-18 [facility] ORDERED DHEA LIZBETH E2 PROG ALL OTHERS GO TO DR CHEW Order Date: 01/17/18 Order Info: 3016-3 - TSH Order Info: 2498-4 - FE TYPE CODE TESTS RESULT OUT OF RANGE REFERENCE UNITS LAB L3300.1750 pg/mL Normal ESTRADIOL 81.4 Result Comment: NORMAL REFERENCE RANGES FEMALE FOLLICULAR 21.4 - 164.8 pg/mL MID-CYCLE PEAK 49.9 - 367.2 pg/mL LUTEAL 40.2 - 259.0 pg/mL POST-MENOPAUSAL ON MHT <11.0 - 462.1 pg/mL NOT ON MHT <11.0 - 58.3 pg/mL MALE <11.0 - 52.5 pg/mL NOTE: [facility] HAS CONFIRMED THE DRUG FULVETRANT (FASLODEX) MAY CAUSE FALSELY ELEVATED ESTRADIOL RESULTS WHEN USING THIS TEST METHOD. IF PATIENT IS TAKING FULVESTRANT AN ALTERNATIVE METHOD SHOULD BE USED TO DETERMINE ESTRADIOL CONCENTRATION. Performed By: #### L3300.1750, L503.6550 #### [facility] [address] [place], [address] FERRITIN Collected: 01/20/2018 Status: F Source: WILLIAMS 9:05 AM [facility] REPOSITORY Order Comment: PLEASE ADD HIREN TO BLOOD FROM 01-20-18 [facility] ORDERED DHEA LIZBETH E2 PROG ALL OTHERS GO TO DR CHEW Order Date: 01/17/18 Order Info: 3016-3 - TSH Order Info: 2498-4 - FE TYPE CODE TESTS RESULT OUT OF RANGE REFERENCE UNITS LAB L503.6550 8-252 ng/mL Normal FERRITIN 37 Performed By: #### L3300.1750, L503.6550 #### [facility] [address] [place], [address] TESTOSTERONE, SERUM TOTAL Collected: 01/20/2018 Status: F Source: WILLIAMS 9:05 [facility] REPOSITORY Order Comment: SALO ORDERED DHEA LIZBETH E2 PROG ALL OTHERS GO TO DR CHEW Order Date: 01/17/18 Order Info: 2132-9 - B12 Order Info: 47307-5 - VITD25 TYPE CODE TESTS RESULT OUT OF REFERENCE UNITS RANGE LAB L509.3000 ng/dL Testosterone Normal 26.02 Result Comment: NORMAL REFERENCE RANGES MALE AGE <50 123.06 - 813.86 ng/dL MALE AGE >50 89.98 - 780.10 ng/dL FEMALE PREMENOPAUSE AGE 21 - 60 9.01 - 47.94 ng/dL FEMALE POSTMENOPAUSE AGE 45 - 89 <7.00 - 45.62 ng/dL REFERENCE RANGE AND METHODOLOGY CHANGED 10/18/2017 Performed By: #### L509.3000, L509.4001, L509.6000 #### [facility] [address] [place], [place], [id number] PROGESTERONE LEVEL Collected: 01/20/2018 Status: F Source: ADAM 9:05 [facility] REPOSITORY Order Comment: SALO ORDERED DHEA LIZBETH E2 PROG ALL OTHERS GO TO DR CHEW Order Date: 01/17/18 Order Info: 9 - B12 Order Info: 35125-9 - VITD25 TYPE CODE TESTS RESULT OUT OF REFERENCE UNITS RANGE LAB L509.4001 See Comment ng/mL Progesterone Normal 0.32 Result Comment: Progesterone Reference Table: UNITS Female: Follicular 0.15 - 1.40 ng/mL Luteal 3.34 - 25.56 ng/mL Mid-luteal 4.44 - 28.03 ng/mL Postmenopausal 0.0 - 0.73 ng/mL : 1st Trimester 11.22 - 90.00 ng/mL 2nd Trimester 25.55 - 89.40 ng/mL 3rd Trimester 48.40 -422.50 ng/mL Performed By: #### L509.3000, L509.4001, L509.6000 #### [facility] [address] [place], [place], [id number] CORTISOL SERUM Collected: 01/20/2018 Status: F Source: ADAM 9:05 [facility] REPOSITORY Order Comment: SALO ORDERED DHEA LIZBETH E2 PROG ALL OTHERS GO TO DR CHEW Order Date: 01/17/18 Order Info: 2132-9 - B12 Order Info: 26077-0 - VITD25 TYPE CODE TESTS RESULT OUT OF RANGE REFERENCE UNITS LAB L509.6000 3.09-22.40 ug/dL Normal CORTISOL 10.10 Result Comment: Adult (AM) 4.30 - 22.40 ug/dL Adult (PM) 3.09 - 16.66 ug/dL Performed By: #### L509.3000, L509.4001, L509.6000 #### [facility] [address] [place], [address] ALLERGIES ALLERGIES DATE TYPE / CODE NAME / CODE REACTION SEVERITY SOURCE DRUG AMITRIPTYLINE HCL OTHER: SEE C [place] 9 INGREDI/[id number]( [facility] SNOMED CT) [place] [facility] lactose/[id number] Diarrhea Unknown [place] 7 Allergy/436505026( 2(RXNORM) [facility] Drug peach/[id number]( Anaphylaxis Unknown [place] 7 Allergy/304998223( RXNORM) [facility] Drug pear/[id number](R Anaphylaxis Unknown [place] 7 Allergy/081540866( XNORM) [facility] Rep[facility] Drug apple/Q394889559( Anaphylaxis Unknown [place] 7 Allergy/363887234( RXNORM) [facility] SNOMED CT) Hospital Repository Drug nut - Anaphylaxis Unknown [place] 7 Allergy/877101087( unspecified/F0060 [facility]) [address](RXNORM) Hospital Repository Drug amitriptyline/F00 make very Unknown [place] 7 Allergy/664984817( 7049953(RXNORM) sleepy [facility] Hospital Repository Miscellaneous OTHER [place] 9 Allergy/068555391( [facility] SNOMED CT) [place] [facility] ENCOUNTERS ENCOUNTERS ADMIT/DISCHARGE ACCOUNT ADMITTING ENCOUNTER LOCATION SOURCE NUMBER CLASS 11/20/2018/11/20/19 [id number] Ambulatory [address] Repository 11/20/2018/11/20/19 [id number] Ambulatory [address] Repository 11/20/2018/11/20/19 [id number] Ambulatory [address] Repository 11/01/2018/11/02/19 [id number] Ambulatory [address] Repository 11/01/2018/11/01/19 [id number] Ambulatory [address] Repository 11/01/2018/11/01/19 [id number] Ambulatory [address] Repository 11/01/2018/11/05/19 [id number] Ambulatory [address] Repository 11/01/2018 [id number] [facility] ing:LAB Repository 10/25/2018 [id number] [facility] ing:LAB.FUTUR Repository E 10/16/2018 [id number] [facility] ing:MFPLAB Repository 07/20/2018 [id number] [facility] Hospital ing:LAB Repository 05/28/2018 [id number] [facility] ing:LAB.FUTUR Repository E 03/20/2018 [id number] [facility] Hospital ing:HPRAD Repository 02/28/2018 [id number] [facility] Hospital ing:SL Repository 01/20/2018 [id number] [facility] ing:LAB.FUTUR Repository E PAYERS PAYERS ENCOUNTER GUARANTOR PAYER SUBSCRIBER SOURCE 11/01/2018 SHARYN Castillo Primary Insurance:MED LORNE ARCADIO [place] [id number] [facility] DURSTINEDOB[facility] RDPO Number: [id number] Hospital [address] [id number] Repository [place], [place] Date:8867-35-61DM [address] [address]Pxp: [phone], [place] [phone] (BE) [address]WP: CHECK WEBSITE 11/01/2018 Secondary NOT GIVENUNK Adam Insurance:SELF PAY [facility] Number: Effective Repository Date:2018-10-31 10/25/2018 SHARYN Castillo Primary Insurance:MED LORNE ARCADIO [place] [id number] MUTUAL TPAPolicy DURSTINEDOB: Community [address] Number: [id number] Hospital [address] [id number] Repository [place], [place] Date:2363-47-03AN [address] [address]Zks: [phone], [place] [phone] (HP) [address]ZR: CHECK WEBSITE 10/25/2018 Secondary NOT GIVENUNK Adam Insurance:SELF PAY [facility] Number: Effective Repository Date:2018-10-25 10/16/2018 SHARYN Castillo Primary Insurance:MED LORNE ARCADIO Dcoster [id number] MUTUAL TPAPolicy DURSTINEDOB: Community [address] Number: [id number] Hospital [address] [id number] Repository [place], [place] Date:6378-19-72RA [address] [address]Bhv: [phone], [place] [phone] () [address]IV: CHECK WEBSITE 10/16/2018 Secondary NOT GIVENUNK [place] Insurance:SELF PAY [facility] Number: Effective Repository Date:2018-10-16 07/20/2018 SHARYN M Primary Insurance:MED LORNE ARCADIO Dcoster [id number] MUTUAL TPAPolicy DURSTINEDOB: Community [address] Number: [id number] Hospital [address] [id number] Repository [place], [place] Date:2040-70-50KH [address] [address]Fem: [phone], [place] [phone] (HP) [phone]: CHECK WEBSITE 07/20/2018 Secondary NOT GIVENUNK Adam Insurance:SELF PAY [facility] Number: Effective Repository Date:2018-07-20 05/28/2018 SHARYN M Primary Insurance:MED LORNE ARCADIO Dcoster [id number] MUTUAL TPAPolicy DURSTINEDOB: Community [address] Number: [id number] Hospital [address] [id number] Repository [place] Date:0530-67-39SV [address] [address]Wji: [phone], [place] [phone] (HP) [address]CW: CHECK WEBSITE 05/28/2018 Secondary NOT GIVENUNK [place] Insurance:SELF PAY [facility]: Effective Repository Date:2018-05-18 03/20/2018 SHARYN Castillo Primary Insurance:MED LORNE ARCADIO Adam [id number] MUTUAL TPAPolicy DURSTINEDOB: Community [address] Number: [id number] Hospital [address] [id number] Repository [place] Date:3930-71-58SP [address] [address]Ndc: [phone], [place] [phone] () [address]VD: CHECK WEBSITE 03/20/2018 Secondary NOT GIVENUNK [place] Insurance:SELF PAY [facility] Number: Effective Repository Date:2018-03-20 02/28/2018 SHARYN Castillo Primary Insurance:MED LORNE ARCADIO Adam [id number] MUTUAL TPAPolicy DURSTINEDOB: Community [address] Number: [id number] Hospital [address] [id number] Repository [place] Date:8533-78-11WS [address] [address]Gtx: [phone], [place] [phone] () [address]FZ: CHECK WEBSITE 02/28/2018 Secondary NOT GIVENUNK [place] Insurance:SELF PAY [facility] Number: Effective Repository Date:2018-01-31 01/20/2018 Sharyn Castillo Primary Insurance:MED Lorne Albers [id number] MUTUAL TPAPolicy DurstineDOB: Community [place] [address]: [id number] Hospital [address] [id number] Repository [place] Date:7774-13-19AH [address] [address]Yih: [phone], [place] [phone] () [phone]: CHECK WEBSITE 01/20/2018 Secondary NOT GIVENUNK Adam Insurance:SELF PAY [facility] Number: Effective Repository Date:2018-01-19
== END ==
PROVIDERS: Family Provider Family Medicine; PCP Family Medicine; Visit Provider Family Medicine
DX: D64.9 Anemia, unspecified (principal); E55.9 Vitamin D deficiency, unspecified; E53.8 Deficiency of other specified B group vitamins; R53.83 Other fatigue; T14.8XXA Other injury of unspecified body region, initial encounter
CPT/HCPCS: 36415; 80053; 82306; 82607; 82728; 82746; 83540; 83550; 84443; 85025; 85045; 85610; 85652; 85730

== ENCOUNTER → 2018-11-01 09:46 | Outpatient (CLI) | payer OTHER, SELFPAY ==
[2018-11-01 11:16] LABS: Glucose GTT- Fasting 85 mg/dL (74-106)
[2018-11-01 12:39] LABS: Glucose GTT-30 minutes 100 mg/dL (110-170)
[2018-11-01 12:39] LABS: Glucose GTT- 1 Hour 90 mg/dL (120-170)
[2018-11-01 13:34] LABS: Glucose GTT- 2 Hour 77 mg/dL (70-120)
== END ==
PROVIDERS: Family Provider Family Medicine; PCP Family Medicine; Referring Provider Family Medicine; Visit Provider Family Medicine
DX: E16.2 Hypoglycemia, unspecified (principal)
CPT/HCPCS: 36415; 82951; 82952

== ENCOUNTER → 2019-01-29 13:21 | Outpatient (CLI) | payer OTHER, SELFPAY ==
[2019-01-29 17:33] LABS: Estradiol 60.5 pg/mL
[2019-01-29 17:44] LABS: Progesterone Level 5.08 ng/mL (See Comment)
== END ==
PROVIDERS: PCP Family Medicine; Visit Provider Obstetrics & Gynecology
DX: N93.8 Other specified abnormal uterine and vaginal bleeding (principal); N92.5 Other specified irregular menstruation; N92.6 Irregular menstruation, unspecified; R53.1 Weakness
CPT/HCPCS: 36415; 82670; 84144

== ENCOUNTER → 2019-02-12 | Outpatient (CLI) | payer OTHER, SELFPAY ==
--- NOTE | 2019-02-12 13:54 | BI_ITS ---
MAMMOGRAPHY - BILATERAL DIAGNOSTIC REASON FOR EXAM: Female, 33 years old. 3 month history of left breast lump and tenderness. PERTINENT HISTORY: Aunt with breast cancer. TECHNIQUE: Digital bilateral breast erick (3D mammographic acquisition) in the CC and MLO projections. 2-D mediolateral oblique (MLO) and craniocaudad (CC) views of both breasts were obtained. CAD: Full Field Digital Mammography with Computer Added Detection was performed. COMPARISON: None. Baseline examination. FINDINGS: Breast Composition: The breasts are extremely dense, which lowers the sensitivity of mammography. There are no dominant masses or suspicious calcifications. No other significant abnormalities are identified. BI/DIAG MAMM W/CAD, BILAT IMPRESSION: Negative diagnostic mammogram. With the patient's history of a palpable abnormality in the upper outer quadrant of the left breast, correlation with ultrasound is recommended. ASSESSMENT CATEGORY: BIRADS Category 0: Incomplete. Need additional imaging evaluation. A letter regarding these results will be sent to the patient by the facility within 30 days. Approximately 10% of breast cancers are not detected by mammography. A normal mammogram should not delay biopsy of a clinically suspicious abnormality. Electronically Signed: Alexander Guadarrama, at 15:52 EDT , Service support ,
--- NOTE | 2019-02-12 13:55 | US_ITS ---
STUDY: ULTRASOUND BREAST - LEFT REASON FOR EXAM: Female, 33 years old. Palpable lump left breast. TECHNIQUE: Axial and longitudinal images of the LEFT breast were performed with a high resolution ultrasound transducer. COMPARISON: Comparison is made with prior mammogram done earlier today. FINDINGS: LEFT Breast: There is a 1 cm x 1.1 cm x 0.4 cm slightly ill-defined hypoechoic nodule at the 2:00 position of the breast at 7 cm from the nipple. A biopsy is recommended for further evaluation. US/Breast Limited Unilateral IMPRESSION: 1 cm x 1.1 cm x 0.4 cm slightly ill-defined hypoechoic nodule at the 2:00 position of the breast at 7 cm from the nipple. A biopsy is recommended for further evaluation. ASSESSMENT CATEGORY: BIRADS Category 4: Suspicious - Biopsy Should Be Considered. A letter regarding these results will be sent to the patient by the facility within 30 days. Electronically Signed: Alexander Guadarrama, at 15:42 EDT , Service support ,
== END | disposition home or self-care (01) ==
PROVIDERS: Family Provider Family Medicine; PCP Family Medicine; Referring Provider Obstetrics & Gynecology; Visit Provider Obstetrics & Gynecology
DX: N63.20 Unspecified lump in the left breast, unspecified quadrant (principal)
CPT/HCPCS: 76642; 77062; 77066; G0279

== ENCOUNTER → 2019-02-18 | Outpatient (CLI) | payer OTHER, SELFPAY ==
--- NOTE | 2019-02-18 15:15 | BRBX_PTH ---
PATIENT: MANI ABREU LOC: [facility] U#:[id number] AGE/SX: 34/F ROOM: RE02/18/[address]: Dr. Kodi Patterson MD : 1985 BED: DIS: 02/18/2019 SPEC #: [id number] RECD: 02/18/19 16:53 STATUS: JOYA REDon #: [id number] TAMICA: 02/18/19 15:[address]: Kodi Patterson DEPT: SURGICAL PATHOLOGY RECD BY: Francisca Maldonado ENTERED: 02/19/19 11:11 SP TYPE: BREAST BX OTHR DR: Dr. Brock Chew MD Tissues: Left breast, NOS Procedures: Surgery Specimen Level IV HEADER OPERATION: Left breast core biopsy PRE-OP DIAGNOSIS: Left breast abnormal imaging TISSUE SUBMITTED: Left breast tissue MICROSCOPIC DIAGNOSIS Left breast, core biopsy: Minimal fibrocystic change. Focal intraductal hyperplasia without atypia. No evidence of malignancy. AM:mariano 02/20/19 MICROSCOPIC DESCRIPTION Slides are reviewed. GROSS DESCRIPTION Received in fixative is one container labeled with the patient's name and designated left breast. The specimen consists of multiple irregular and elongated fragments of light roque soft tissue that in aggregate measure 1.2 x 0.5 x 0.1 cm. The specimen is totally submitted in one cassette. / AM:mariano 02/19/19 TC:5 CPT: 38720
[2019-02-18 15:32] VITALS: BMI 25.3
== END | disposition home or self-care (01) ==
LOC: LABSPEC 16:54
PROVIDERS: Family Provider Family Medicine; PCP Family Medicine; Referring Provider Surgery; Visit Provider Surgery
DX: R92.8 Other abnormal and inconclusive findings on diagnostic imaging of breast (principal)
CPT/HCPCS: 88305

== ENCOUNTER → 2019-05-10 | Outpatient (CLI) | payer OTHER, SELFPAY ==
[2019-02-18 15:32] VITALS: BMI 25.3
[2019-05-10 16:05] LABS: Absolute Lymphocyte Count 1.74 X10^3/ul (0.83-4.51); Absolute Neutrophil Count 3.4 X10^3/uL (2.0-7.7); Basophil# 0.06 X10^3/uL; Basophil% 1.1 % (0-1); Eosinophils% 1.8 % (0-5); Hemoglobin 14.6 g/dl (12.0-15.0); Lymphocyte # 1.74 X10^3/ul (4.0); Lymphocyte % 30.5 % (19-41); Mean Corp Hgb Conc 33.2 g/gl (32-36); Mean Corpuscular Hgb 30.2 pg (27.0-32.0); Mean Corpuscular Volume 91.1 fL (81-99); Mean Platelet Vol. 9.5 fl (6.2-12.0); Monocyte# 0.42 X10^3/uL; Monocyte% 7.4 % (0-10); Neutrophil # 3.38 X10^3/uL (2.7-7.7); Platelet Count 273 K/mm3 (150-450); RBC Distribution Width CV 13.1 % (11.6-14.6); Red Blood Count 4.83 M/mm3 (4.2-5.4); White Blood Count 5.7 K/mm3 (4.4-11.0)
[2019-05-10 16:07] LABS: POSITIVE COUNT NO; POSITIVE DIFFERENTIAL NO; POSITIVE MORPHOLOGY NO
[2019-05-10 16:34] LABS: Progesterone Level 1.69 ng/mL (See Comment); Vitamin B12 553 pg/mL (211-911)
[2019-05-10 16:45] LABS: Estradiol 62.3 pg/mL; Ferritin 36 ng/mL (8-252); Iron 108 ug/dL (50-170)
[2019-05-10 16:46] LABS: Hemoglobin A1c 5.2 % (4.2-6.3)
== END | disposition home or self-care (01) ==
LOC: LAB.FUTURE 14:53
PROVIDERS: Family Provider Family Medicine; PCP Family Medicine; Referring Provider Obstetrics & Gynecology; Visit Provider Obstetrics & Gynecology
DX: D64.9 Anemia, unspecified (principal); E55.9 Vitamin D deficiency, unspecified; E53.8 Deficiency of other specified B group vitamins; N94.6 Dysmenorrhea, unspecified; R68.82 Decreased libido
CPT/HCPCS: 36415; 82306; 82607; 82670; 82728; 83036; 83540; 84144; 84403; 85025

== ENCOUNTER → 2019-12-30 | Outpatient (CLI) | payer OTHER, SELFPAY ==
[2019-12-29 13:38] VITALS: BMI 25.3
[2019-12-30 17:46] LABS: Absolute Lymphocyte Count 2.07 X10^3/uL (0.83-4.51); Absolute Neutrophil Count 3.7 X10^3/uL (2.0-7.7); Basophil# 0.06 X10^3/uL; Eosinophil# 0.08 X10^3/uL; Eosinophils% 1.3 % (0-5); Hematocrit 43.7 % (37-47); Hemoglobin 14.4 g/dL (12.0-15.0); Lymphocyte # 2.07 X10^3/ul (4.0); Lymphocyte % 32.9 % (19-41); Mean Corpuscular Hgb 30.1 pg (27.0-32.0); Mean Corpuscular Volume 91.2 fL (81-99); Mean Platelet Vol. 9.6 fl (6.2-12.0); Monocyte% 6.3 % (0-10); NRBC Flagged by Analyzer 0 % (0-5); Neutrophil # 3.67 X10^3/uL (2.7-7.7); Neutrophil % 58.2 % (47-70); Platelet Count 264 K/mm3 (150-450); RBC Distribution Width SD 40.5 fl (35.1-43.9); Red Blood Count 4.79 M/mm3 (4.2-5.4); White Blood Count 6.3 K/mm3 (4.4-11.0)
[2019-12-30 18:36] LABS: Vitamin B12 621 pg/mL (211-911); Vitamin D,25 Hydroxy 69.9 ng/mL
[2019-12-30 18:38] LABS: Ferritin 35 ng/mL (8-252); Iron 87 ug/dL (50-170); Iron Binding Capacity,Total 333 ug/dL (250-450); Thyroid Stim Hormone (TSH) 3.48 uIU/mL (0.358-3.74)
== END | disposition home or self-care (01) ==
PROVIDERS: Family Medicine; PCP Family Medicine; Referring Provider Family Medicine; Visit Provider Family Medicine
DX: E61.1 Iron deficiency (principal); E53.8 Deficiency of other specified B group vitamins; E55.9 Vitamin D deficiency, unspecified; R53.83 Other fatigue
CPT/HCPCS: 36415; 82306; 82607; 82728; 82746; 83540; 83550; 84443; 85025

== ENCOUNTER 2020-01-05 10:59 | Emergency (ER) | payer OTHER, SELFPAY ==
[2019-12-29 13:38] VITALS: BMI 25.3
[2020-01-05 11:01] VITALS: BP 143/81; PULSE 98; RESP 16; TEMP 36.5; O2SAT 100; BMI 26.5
--- NOTE | 2020-01-05 11:14 | RAD_ITS ---
STUDY: X-RAY CHEST REASON FOR EXAM: Female, 34 years old. Cough for one day. TECHNIQUE: PA and lateral views of the chest. COMPARISON: Prior comparison studies are not available for review at this time. FINDINGS: The lungs are clear and expanded. There is no demonstrated pleural abnormality. Normal size heart. Normal mediastinum and luci. Normal visualized pulmonary arteries. Normal visualized aortic arch and descending thoracic aorta. Normal visualized thoracic spine. Normal visualized ribs, clavicles, and shoulders. There is no demonstrated abnormality of the visualized soft tissue structures of the upper abdomen. RAD/Chest PA and Lateral IMPRESSION: Normal x-ray examination of the chest. Electronically Signed: Juve Garvey MD at 12:33 EDT Tel , Service support ,
--- NOTE | 2020-01-05 11:15 | ED.VIS.DYS ---
History of Present Illness Chief Complaint: Asthma Informant: Patient Onset: Weeks - 1 week Activity at onset: Exertion, Light Activity, Rest Timing: Continuous Quality: Dyspnea on exertion, Wheezing Current Severity: Severe Maximum Severity: Severe Worsened by: Coughing, Exertion Relieved by: Albuterol Associated Symptoms: Cough, Rhinorrhea. Negative for: Bloody Sputum, Chills, Clear sputum, Ear pain, Fever, Green sputum, Post-nasal drainage, Sore throat, Sweats, White sputum, Yellow sputum Chest Pain: None Narrative: 34-year-old female presents to the emergency department shortness of breath. Patient has a history of asthma. For 1 week she has had progressively worsening shortness of breath associated with nonproductive cough and wheezing. Initially seen at the urgent care a week ago was negative for influenza followed up with her family doctor and was told it was viral. She has not been on any medications other than using her normal inhalers, Singulair, antihistamine and albuterol. She has progressively had worsening of her symptoms. Cough is nonproductive. She has no chest pain or hemoptysis. No leg pain or swelling. No recent travel or surgery. No history of DVT or PE. She is not on oral control pills. No fevers. No sore throat or myalgias. No vomiting or diarrhea. She is not lightheaded or dizzy. 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 She did get a flu shot this year. PE Risk Factors: Negative for: Cancer, OCP + Smoking + > 35, Prior DVT or PE, Recent immobilization, Recent surgery, Recent travel Prior similar symptoms: Yes Recent Illness/Hospitalization: No Past Medical History - Allergies and Home Meds Allergies/Adverse Reactions: Allergies apple Allergy (Verified 12/29/19 12:54) Anaphylaxis nut - unspecified Allergy (Verified 12/29/19 12:54) Anaphylaxis peach Allergy (Verified 12/29/19 12:54) Anaphylaxis pear Allergy (Verified 12/29/19 12:54) Anaphylaxis amitriptyline Adverse Reaction (Verified 12/29/19 12:54) make very sleepy lactose Adverse Reaction (Verified 12/29/19 12:54) Diarrhea Primary Care Physician: Luis M Chew MD [Primary Care Provider] - Prior records reviewed: Yes Past Medical History: - - Asthma, seasonal allergies Surgical History: appendectomy, - - ?2C-section Smoking Status: Former smoker - Family History Maternal Family History: Family History (Last Reviewed 12/29/19 @ 12:54 by Sharyn Biggs) Mother Hypertension High cholesterol Father Hypertension High cholesterol Arthritis Family History: Reports: No pertinent history Review of Systems All systems negative except as indicated General: Denies: Chills, Fever Eyes: Denies: Visual changes - bilaterally, Blurred Vision - bilaterally, Diplopia ENT: Reports: Rhinorrhea. Denies: Bilateral ear pain, Left ear pain, Right ear pain, Sore throat Cardiovascular: Denies: Chest pain, Palpitations, Heart racing Respiratory: Reports: Dyspnea, Cough, Dyspnea on exertion. Denies: Sputum, Orthopnea, Paroxysmal nocturnal dyspnea Gastrointestinal: Denies: Abdominal pain, Nausea, Vomiting, Diarrhea, Constipation, Melena, Hematochezia Genitourinary: Denies: Dysuria, Hematuria, Frequency Musculoskeletal: Denies: Myalgias, Arthralgias, Back pain, Swelling, Extremity Pain Skin: Denies: Rash, Abscess, Abrasions, Wounds Neurological: Denies: Headache, Weakness, Parasthesia, Numbness Endocrine: Denies: Polyuria, Polydipsia Allergy: Denies: Uticaria, Swelling of the mouth, Swelling of the tongue Physical Exam Vital Signs/Narrative: Vital Signs Temp Pulse Resp BP Pulse Ox 01/05/20 11:01 97.7 F L 98 16 143/81 H 100 Inital Vital Signs reviewed: Yes General: Well nourished, Well developed, No Acute Distress Head: Normocephalic, Atraumatic Eyes: Perrl, EOMI ENT: Moist mucous membranes Neck: Supple, Nontender, No lymphadenopathy Cardiovascular: Regular rate, Regular rhythm, No murmurs Respiratory: No distress, Chest nontender, Wheezing, Decreased Air Movement Abdomen: Soft, Nontender, Nondistended, Normal bowel sounds, No masses Back: Nontender, Normal Inspection Extremities: Nontender, No edema Skin: Normal color, No rash, No Trauma Neurological: Alert, Oriented x3 Psychological: Normal affect, Normal Mood Diagnostic/Tx/Re-eval Chest X-Ray - ED: 2 View, Read by ED Physician, No Acute Disease Treatment - Dyspnea: Albuterol, Atrovent, Steroid Repeat Evaluation: Improved With Ambulation: Asymptomatic - Medical Decision Making Patient was treated with aerosols, prednisone. Patient's 2 view chest x-ray was obtained and was unremarkable. Patient feels improved on repeat evaluation. She is not short of breath she will be discharged with prednisone she has aerosols at home and will follow-up with her doctor on Monday ED Disposition - Plan for ED Patient: Disposition: Home or Assisted Living Diagnosis: Asthma, Acute bronchitis Instructions: BRONCHITIS with Wheezing (Adult), ASTHMA, Acute (Adult) Prescriptions: Prednisone [Deltasone] 40 mg PO DAILY #10 tab Prescription Printed Referrals: Luis M Chew MD [Primary Care Provider] -
[2020-01-05] MEDS: predniSONE 20 MG Tablet 60 MG PO (11:26)
[2020-01-05] MEDS: Albuterol 2.5 MG/3 ML VIAL.NEB. INHALATION ×3 (11:29)
[2020-01-05] MEDS: Ipratropium/Albuterol Sulfate 3 ML AMPUL.NEB INHALATION (11:29)
[2020-01-05 11:30] VITALS: PULSE 111; RESP 16
[2020-01-05 13:02] VITALS: PULSE 111; RESP 16; TEMP 37.7
== END 2020-01-05 13:02 | disposition home or self-care (01) ==
PROVIDERS: Emergency Provider Physician Assistant Medical; PCP Family Medicine
DX: J20.9 Acute bronchitis, unspecified (principal); J45.909 Unspecified asthma, uncomplicated; Z79.51 Long term (current) use of inhaled steroids; Z87.891 Personal history of nicotine dependence
CPT/HCPCS: 71046; 94640; 99282

== ENCOUNTER → 2020-03-04 | Outpatient (CLI) | payer OTHER, SELFPAY ==
--- NOTE | 2020-03-04 09:26 | BI_ITS ---
MAMMOGRAPHY - BILATERAL DIAGNOSTIC REASON FOR EXAM: Female, 35 years old. Prior biopsy of the nodule in the left upper outer breast. Presently, the patient feels a right breast lump. PERTINENT HISTORY: Grandmother with breast cancer. TECHNIQUE: Digital bilateral breast erick (3D mammographic acquisition) in the CC and MLO projections. 2-D mediolateral oblique (MLO) and craniocaudad (CC) views of both breasts were obtained. CAD: Full Field Digital Mammography with Computer Added Detection was performed. COMPARISON: Comparison is made with prior study dated February 12, 2019. FINDINGS: Breast Composition: The breasts are extremely dense, which lowers the sensitivity of mammography. There are no dominant masses or suspicious calcifications. A tissue clip marker is now seen in the deep upper lateral aspect of the left breast. This is in keeping with prior biopsy. No other significant abnormalities are identified. There has been no significant change since the prior study. BI/DIAG MAMM W/CAD, BILAT IMPRESSION: Stable bilateral diagnostic mammogram. With the patient''s history of a palpable lump in the upper lateral aspect of the right breast, correlation with ultrasound is recommended. ASSESSMENT CATEGORY: BIRADS Category 0: Incomplete. Need additional imaging evaluation. A letter regarding these results will be sent to the patient by the facility within 30 days. Approximately 10% of breast cancers are not detected by mammography. A normal mammogram should not delay biopsy of a clinically suspicious abnormality. Electronically Signed: Alexander Guadarrama, at 10:49 EDT , Service support ,
--- NOTE | 2020-03-04 09:26 | US_ITS ---
STUDY: ULTRASOUND BREAST - RIGHT REASON FOR EXAM: Female, 35 years old. Palpable lump in the right breast. TECHNIQUE: Axial and longitudinal images of the RIGHT breast were performed with a high resolution ultrasound transducer. # OF IMAGES: 17 COMPARISON: Comparison is made with prior mammogram done earlier in the day. FINDINGS: RIGHT Breast: The upper outer quadrant of the right breast was examined by ultrasound. No sonographic abnormality is seen. US/Breast Limited Unilateral IMPRESSION: No sonographic abnormality is seen. ASSESSMENT CATEGORY: BIRADS Category 1: Negative. A letter regarding these results will be sent to the patient by the facility within 30 days. Electronically Signed: Alexander Guadarrama, at 11:15 EDT , Service support ,
== END | disposition home or self-care (01) ==
PROVIDERS: PCP Family Medicine; Referring Provider Surgery; Visit Provider Surgery
DX: Z98.890 Other specified postprocedural states (principal)
CPT/HCPCS: 76642; 77062; 77066; G0279

== ENCOUNTER → 2020-03-04 | Outpatient (CLI) | payer OTHER, SELFPAY ==
[2020-03-04 16:07] LABS: Free T3 2.7 pg/mL (2.18-3.98); T4 Free Direct 0.95 ng/dL (0.76-1.46); Thyroid Stim Hormone (TSH) 2.76 uIU/mL (0.358-3.74)
[2020-03-06 15:29] LABS: Thyroid Peroxidase AB < 9 IU/mL (0-34)
== END | disposition home or self-care (01) ==
LOC: MFPLAB 12:04
PROVIDERS: PCP Family Medicine; Visit Provider Family Medicine
DX: R53.83 Other fatigue (principal)
CPT/HCPCS: 36415; 84439; 84443; 84481; 86376

== ENCOUNTER → 2020-08-26 | Outpatient (CLI) | payer OTHER, SELFPAY ==
[2020-03-10 14:16] VITALS: BMI 26.5
== END | disposition home or self-care (01) ==
LOC: LABSPEC 16:31
PROVIDERS: PCP Family Medicine; Referring Provider Family Medicine; Visit Provider Family Medicine
DX: Z20.828 Contact with and (suspected) exposure to other viral communicable diseases (principal)
CPT/HCPCS: 87635; U0003

== ENCOUNTER → 2021-01-02 08:12 | Outpatient (CLI) | payer OTHER, SELFPAY ==
[2020-03-10 14:16] VITALS: BMI 26.5
[2021-01-02 09:06] LABS: Hematocrit 43.9 % (37-47); Mean Corp Hgb Conc 31.9 g/dL (32-36); Mean Corpuscular Hgb 29.4 pg (27.0-32.0); Mean Corpuscular Volume 92.2 fL (81-99); Mean Platelet Vol. 9.5 fl (6.2-12.0); Platelet Count 250 K/mm3 (150-450); RBC Distribution Width SD 41.2 fl (35.1-43.9); Red Blood Count 4.76 M/mm3 (4.2-5.4); White Blood Count 3.4 K/mm3 (4.4-11.0)
[2021-01-02 09:15] LABS: Erythrocyte Sedimentation Rate 1 mm/hr (0-30)
[2021-01-02 09:51] LABS: CRP < 2.90 mg/L (0.0-3.0); Cholesterol 199 mg/dL (200); Ferritin 55 ng/mL (8-252); High Density Lipoprotein 87 mg/dL; Iron 131 ug/dL (50-170); Rheumatoid Factor < 10.0 IU/mL (<15); Thyroid Stim Hormone (TSH) 2.05 uIU/mL (0.358-3.74); Triglycerides 44 mg/dL; Very Low Density Lipoprotein 9 mg/dL (5-40)
[2021-01-04 08:42] LABS: Vitamin B12 692 pg/mL (211-911); Vitamin D,25 Hydroxy 83.7 ng/mL
[2021-01-04 15:53] LABS: ANTINUCLEAR ANTIBODIES DIRECT Negative (Negative)
== END ==
PROVIDERS: PCP Family Medicine; Visit Provider Family Medicine
DX: E53.8 Deficiency of other specified B group vitamins (principal); E61.1 Iron deficiency; E55.9 Vitamin D deficiency, unspecified; R53.83 Other fatigue; Z13.220 Encounter for screening for lipoid disorders
CPT/HCPCS: 36415; 80061; 82306; 82607; 82728; 83540; 84443; 85027; 85652; 86038; 86140; 86431

== ENCOUNTER → 2021-04-12 12:11 | Outpatient (CLI) | payer OTHER, SELFPAY ==
[2020-03-10 14:16] VITALS: BMI 26.5
[2021-04-12 15:25] LABS: Absolute Lymphocyte Count 1.68 X10^3/uL (0.83-4.51); Basophil# 0.06 X10^3/uL; Basophil% 1.2 % (0-1); Eosinophil# 0.07 X10^3/uL; Eosinophils% 1.3 % (0-5); Hematocrit 46.7 % (37-47); Hemoglobin 14.9 g/dL (12.0-15.0); Lymphocyte # 1.68 X10^3/ul (0.83-4.51); Lymphocyte % 32.2 % (19-41); Mean Corp Hgb Conc 31.9 g/dL (32-36); Mean Corpuscular Hgb 29.3 pg (27.0-32.0); Mean Corpuscular Volume 91.9 fL (81-99); Mean Platelet Vol. 9.5 fl (6.2-12.0); Monocyte# 0.39 X10^3/uL; Monocyte% 7.5 % (0-10); NRBC Flagged by Analyzer 0 % (0-5); Neutrophil % 57.6 % (47-70); Platelet Count 262 K/mm3 (150-450); RBC Distribution Width CV 12.2 % (11.6-14.6); RBC Distribution Width SD 41.5 fl (35.1-43.9); Red Blood Count 5.08 M/mm3 (4.2-5.4); White Blood Count 5.2 K/mm3 (4.4-11.0)
[2021-04-12 15:57] LABS: Iron 90 ug/dL (50-170)
== END ==
PROVIDERS: PCP Family Medicine; Visit Provider Family Medicine
DX: R53.83 Other fatigue (principal)
CPT/HCPCS: 36415; 83540; 85025

== ENCOUNTER → 2021-06-24 15:40 | Outpatient (CLI) | payer OTHER, SELFPAY ==
[2021-06-24 18:07] LABS: Anion Gap 7 (5-15); BUN 15 mg/dL (7-18); BUN/Creat Ratio 19.4 RATIO (10-20); Calcium,Total 8.9 mg/dL (8.5-10.1); Chloride 106 mmol/L (98-107); Creatinine, Serum 0.77 mg/dL (0.55-1.02); EST Glomerular Filtration Rate 89 mL/min (>60); Est Glom Filt Rate - Afr Amer 108 mL/min (>60); Glucose 88 mg/dL (74-106); Potassium 3.6 mmol/L (3.5-5.1); Sodium Level 139 mmol/L (136-145)
[2021-06-24 18:26] LABS: Vitamin B12 565 pg/mL (211-911); Vitamin D,25 Hydroxy 74.1 ng/mL
== END ==
PROVIDERS: PCP Family Medicine; Visit Provider Family Medicine
DX: E53.8 Deficiency of other specified B group vitamins (principal); E55.9 Vitamin D deficiency, unspecified; Z20.822 Contact with and (suspected) exposure to COVID-19
CPT/HCPCS: 36415; 80048; 82306; 82607; 86769

== ENCOUNTER → 2021-06-30 | Outpatient (CLI) | payer OTHER, SELFPAY | END | disposition home or self-care (01) | LOC: LABSPEC 07-01 11:51 | PROVIDERS: PCP Family Medicine; Visit Provider Physician Assistant | DX: U07.1 COVID-19 (principal) | CPT/HCPCS: 87635; U0005; U0003 ==

== ENCOUNTER → 2021-08-02 17:10 | Outpatient (CLI) | payer OTHER, SELFPAY ==
--- NOTE | 2021-08-02 17:14 | RAD_ITS ---
STUDY: X-RAY CHEST REASON FOR EXAM: Female, 36 years old. Covid infection TECHNIQUE: PA and lateral views of the chest. COMPARISON: 01/17/2020 FINDINGS: The lungs are clear and expanded. There is no demonstrated pleural abnormality. Normal size heart. Normal mediastinum and luci. Normal visualized pulmonary arteries. Normal visualized aortic arch and descending thoracic aorta. Normal visualized thoracic spine. Normal visualized ribs, clavicles, and shoulders. There is no demonstrated abnormality of the visualized soft tissue structures of the upper abdomen. RAD/Chest PA and Lateral IMPRESSION: Normal x-ray examination of the chest. Electronically Signed: Parth Price MD at 4:59 EDT Tel , Service support ,
== END ==
PROVIDERS: PCP Family Medicine; Referring Provider Family Medicine; Visit Provider Family Medicine
DX: U07.1 COVID-19 (principal)
CPT/HCPCS: 71046

== ENCOUNTER → 2021-08-04 15:43 | Outpatient (CLI) | payer OTHER, SELFPAY ==
[2021-08-04 18:01] LABS: Absolute Lymphocyte Count 2.46 X10^3/uL (0.83-4.51); Absolute Neutrophil Count 2.5 X10^3/uL (2.0-7.7); Basophil# 0.06 X10^3/uL; Basophil% 1.1 % (0-1); Eosinophil# 0.15 X10^3/uL; Eosinophils% 2.6 % (0-5); Hematocrit 43.8 % (37-47); Lymphocyte # 2.46 X10^3/ul (0.83-4.51); Lymphocyte % 43.3 % (19-41); Mean Corpuscular Hgb 29.4 pg (27.0-32.0); Mean Platelet Vol. 9.6 fl (6.2-12.0); Monocyte# 0.47 X10^3/uL; Monocyte% 8.3 % (0-10); NRBC Flagged by Analyzer 0 % (0-5); Neutrophil # 2.53 X10^3/uL (2.7-7.7); Neutrophil % 44.5 % (47-70); Platelet Count 298 K/mm3 (150-450); RBC Distribution Width CV 11.9 % (11.6-14.6); RBC Distribution Width SD 40.7 fl (35.1-43.9); Red Blood Count 4.76 M/mm3 (4.2-5.4); White Blood Count 5.7 K/mm3 (4.4-11.0)
[2021-08-04 18:08] LABS: D-Dimer Quantitative (DVT/PE) <= 0.27 FEU/ug/m (0.27-0.49)
[2021-08-04 18:12] LABS: Anion Gap 6 (5-15); BUN 16 mg/dL (7-18); BUN/Creat Ratio 20.4 RATIO (10-20); CRP, High Sensitivity Cardiac 1.14 mg/L; Calcium,Total 9.1 mg/dL (8.5-10.1); Chloride 105 mmol/L (98-107); Creatinine, Serum 0.78 mg/dL (0.55-1.02); EST Glomerular Filtration Rate 88 mL/min (>60); Erythrocyte Sedimentation Rate 3 mm/hr (0-30); Est Glom Filt Rate - Afr Amer 106 mL/min (>60); Glucose 107 mg/dL (74-106); Potassium 4.3 mmol/L (3.5-5.1); Sodium Level 141 mmol/L (136-145)
== END ==
PROVIDERS: PCP Family Medicine; Referring Provider Family Medicine; Visit Provider Family Medicine
DX: R06.02 Shortness of breath (principal)
CPT/HCPCS: 36415; 80048; 85025; 85379; 85652; 86141

== ENCOUNTER → 2021-08-11 13:46 | Outpatient (CLI) | payer OTHER, SELFPAY ==
--- NOTE | 2021-08-11 13:49 | ECHOD_ITS ---
Reason For Study: SOB Procedure This was a 2D Doppler, Color Flow transthoracic echocardiogram. Exam performed in department. Left Ventricle Normal LV size. Left ventricular systolic function is normal. The estimated ejection fraction is 60 %. Normal diastology for age. No regional wall motion abnormalities noted. Right Ventricle Normal RV size. Normal systolic function. Atria Normal left atrium. Normal right atrium. Mitral Valve Normal mitral valve. Tricuspid Valve Normal tricuspid valve. Aortic Valve Normal aortic valve. Trisinus/trileaflet aortic valve. Pulmonic Valve Normal pulmonic valve. Great Vessels Normal aortic root. The pulmonary artery is normal size. Normal inferior vena cava. Pericardium/Pleural No pericardial effusion. MMode/2D Measurements & Calculations LVIDd: 4.1 cm IVSd: 1.2 cm LA dimension: 3.3 cm LVIDs: 2.9 cm LVPWd: 0.99 cm FS: 29.8 % LAV(MOD-bp): 34.9 ml LA A4 area: 15.0 cm2 RA A4 area: 12.9 cm2 LAV(MOD-bp) Indexed: 19.9 ml/m2 LAV(MOD-sp2): 28.7 ml LAV(MOD-sp4): 35.2 ml Time Measurements MV dec time: 0.14 sec Doppler Measurements & Calculations MV E max samm: 78.7 cm/sec Lat Peak E' Samm: 13.5 cm/sec Med Peak E' Samm: 14.7 cm/sec MV A max samm: 93.8 cm/sec E/E' lat: 5.8 E/E' med: 5.4 MV E/A: 0.84 Ao V2 max: 121.3 cm/sec LV V1 max: 85.2 cm/sec PA V2 max: 109.8 cm/sec Ao max P.9 mmHg LV V1 max P.9 mmHg ECHO/Echo Complete Interpretation Summary Normal LV size. Left ventricular systolic function is normal. The estimated ejection fraction is 60 %. Structurally normal valves. Ordering Physician: Luis M Chew Referring Physician: Luis M Chew Performed By: Mao Walsh RCS
== END ==
PROVIDERS: PCP Family Medicine; Referring Provider Family Medicine; Visit Provider Family Medicine
DX: R06.02 Shortness of breath (principal)
CPT/HCPCS: 93306

== ENCOUNTER → 2021-08-17 16:40 | Outpatient (CLI) | payer OTHER, SELFPAY ==
--- NOTE | 2021-08-17 16:55 | CT_ITS ---
STUDY: CT CHEST WITH CONTRAST REASON FOR EXAM: Female, 36 years old. SOB RADIATION DOSAGE (If Supplied By Facility): CTDIvol = ( 8.73 ) mGy, DLP = ( 285.63 ) mGycm TECHNIQUE: Transaxial imaging was performed following intravenous administration of IV 100mL Isovue-300. Multiplanar coronal and sagittal images were reformatted. Individualized dose optimization techniques were used for this CT. COMPARISON: None. FINDINGS: The lungs are normal. There is no demonstrated pleural abnormality. Normal heart and pericardium. Normal mediastinum. Calcified subcarinal lymph nodes. Normal hilar regions. Normal enhanced pulmonary arteries. Normal aorta arch and descending thoracic aorta. No abnormal enhancement. Normal osseous structures. There is no demonstrated abnormality of the visualized upper abdomen. CT/Chest WITH Contrast IMPRESSION: No acute abnormal finding. No finding to explain shortness of breath. Electronically Signed: Shay Michelle MD at 5:21 EDT Tel , Service support ,
== END ==
PROVIDERS: PCP Family Medicine; Referring Provider Family Medicine; Visit Provider Family Medicine
DX: R06.02 Shortness of breath (principal)
CPT/HCPCS: 71260; Q9967

== ENCOUNTER → 2022-05-11 | Outpatient (CLI) | payer OTHER, SELFPAY ==
[2022-05-11 15:25] LABS: Absolute Lymphocyte Count 1.69 X10^3/uL (0.83-4.51); Basophil# 0.06 X10^3/uL; Basophil% 1.1 % (0-1); Eosinophil# 0.07 X10^3/uL; Eosinophils% 1.3 % (0-5); Hematocrit 42.6 % (37-47); Hemoglobin 13.9 g/dL (12.0-15.0); Lymphocyte # 1.69 X10^3/ul (0.83-4.51); Lymphocyte % 32.4 % (19-41); Mean Corp Hgb Conc 32.6 g/dL (32-36); Mean Corpuscular Hgb 29.5 pg (27.0-32.0); Mean Corpuscular Volume 90.4 fL (81-99); Mean Platelet Vol. 9.5 fl (6.2-12.0); Monocyte# 0.45 X10^3/uL; Monocyte% 8.6 % (0-10); NRBC Flagged by Analyzer 0 % (0-5); Neutrophil # 2.95 X10^3/uL (2.7-7.7); Neutrophil % 56.6 % (47-70); Platelet Count 290 K/mm3 (150-450); RBC Distribution Width CV 12.1 % (11.6-14.6); RBC Distribution Width SD 40.2 fl (35.1-43.9); Red Blood Count 4.71 M/mm3 (4.2-5.4); White Blood Count 5.2 K/mm3 (4.4-11.0)
[2022-05-11 15:52] LABS: Anion Gap 4 (5-15); BUN 13 mg/dL (7-18); BUN/Creat Ratio 16.5 RATIO (10-20); Calcium,Total 9.1 mg/dL (8.5-10.1); Chloride 105 mmol/L (98-107); Creatinine, Serum 0.79 mg/dL (0.55-1.02); EST Glomerular Filtration Rate 87 mL/min (>60); Est Glom Filt Rate - Afr Amer 105 mL/min (>60); Ferritin 92 ng/mL (8-252); Glucose 86 mg/dL (74-106); Iron 154 ug/dL (50-170); Potassium 4.3 mmol/L (3.5-5.1); Sodium Level 138 mmol/L (136-145)
[2022-05-11 15:58] LABS: Vitamin B12 508 pg/mL (211-911)
== END | disposition home or self-care (01) ==
PROVIDERS: PCP Family Medicine; Referring Provider Family Medicine; Visit Provider Family Medicine
DX: E53.8 Deficiency of other specified B group vitamins (principal); E61.1 Iron deficiency; E55.9 Vitamin D deficiency, unspecified
CPT/HCPCS: 36415; 80048; 82306; 82607; 82728; 83540; 85025

== ENCOUNTER → 2022-05-24 | Outpatient (CLI) | payer OTHER, SELFPAY ==
[2022-05-24 16:25] LABS: Lyme Ab Screen Interpretation REF LAB
[2022-05-24 18:14] LABS: Erythrocyte Sedimentation Rate 3 mm/hr (0-30)
[2022-05-24 19:26] LABS: AST(SGOT) 18 U/L (15-37); Alanine Aminotransfer ALT/SGPT 21 U/L (13-56); Alkaline Phosphatase 52 U/L (45-117); Bilirubin, Direct 0.14 mg/dL (0.00-0.30); Free T3 2.9 pg/mL (2.18-3.98); Globulin 2.8 g/dL (2.2-4.2); Magnesium 2.4 mg/dL (1.6-2.6); Protein, Total 6.8 g/dL (6.4-8.2); T4 Free Direct 1.03 ng/dL (0.76-1.46); Thyroid Stim Hormone (TSH) 1.64 uIU/mL (0.358-3.74)
[2022-05-26 15:44] LABS: Lyme Scn Total Ab w/Rflx Negative (Negative)
== END | disposition home or self-care (01) ==
LOC: MFPLAB 16:24
PROVIDERS: PCP Family Medicine; Referring Provider Family Medicine; Visit Provider Family Medicine
DX: R53.83 Other fatigue (principal)
CPT/HCPCS: 36415; 80076; 82533; 83735; 84439; 84443; 84481; 85652; 86618

== ENCOUNTER → 2022-06-13 | Outpatient (CLI) | payer OTHER, SELFPAY ==
--- NOTE | 2022-06-13 12:45 | STRESSREP ---
Stress Test Report Exercise stress test. 37-year-old lady with a history of palpitations. Stress protocol: Resting EKG demonstrates normal sinus rhythm with a rate of 85 bpm normal intervals are noted resting blood pressure is 112/68 mmHg. The patient exercised according to the regular Ti protocol for total duration of 9 minutes. The maximum heart rate attained was 193 bpm which was 105% of max impacted heart rate the maximum workload was 10.1 metabolic equivalents. At rest there were no ST or T wave changes noted suggest ischemia and at peak exercise upsloping ST changes were noted with did not meet the criteria for ischemia. No clinical angina was noted. The test was terminated due to dyspnea. The resting blood pressure was 112/68 with a peak blood pressure 132/60 mmHg. No arrhythmias were noted. Conclusion: Exercise stress test with no EKG criteria for ischemia at a high workload. No clinical angina noted.
== END | disposition home or self-care (01) ==
LOC: CVS 09:54
PROVIDERS: PCP Family Medicine; Referring Provider Family Medicine; Visit Provider Family Medicine
DX: R06.00 Dyspnea, unspecified (principal); R00.2 Palpitations
CPT/HCPCS: 93017; 93350

== ENCOUNTER → 2022-08-23 | Outpatient (CLI) | payer OTHER, SELFPAY ==
[2022-08-23 09:15] LABS: Absolute Lymphocyte Count 1.61 X10^3/uL (0.83-4.51); Absolute Neutrophil Count 4.3 X10^3/uL (2.0-7.7); Basophil# 0.05 X10^3/uL; Basophil% 0.7 % (0-1); Eosinophil# 0.15 X10^3/uL; Eosinophils% 2.2 % (0-5); Hematocrit 42.2 % (37-47); Hemoglobin 13.8 g/dL (12.0-15.0); Lymphocyte # 1.61 X10^3/ul (0.83-4.51); Lymphocyte % 23.9 % (19-41); Mean Corp Hgb Conc 32.7 g/dL (32-36); Mean Corpuscular Hgb 29.5 pg (27.0-32.0); Mean Corpuscular Volume 90.2 fL (81-99); Mean Platelet Vol. 9.2 fl (6.2-12.0); Monocyte% 8.9 % (0-10); NRBC Flagged by Analyzer 0 % (0-5); Neutrophil # 4.31 X10^3/uL (2.7-7.7); Platelet Count 239 K/mm3 (150-450); RBC Distribution Width SD 39.4 fl (35.1-43.9); Red Blood Count 4.68 M/mm3 (4.2-5.4); White Blood Count 6.7 K/mm3 (4.4-11.0)
[2022-08-23 09:25] LABS: Internal QC Validated? YES +Cl - CLEAR BKGD; Pregnancy, Serum, hCG Quali. NEGATIVE Negative
[2022-08-23 09:29] LABS: Anion Gap 5 (5-15); BUN 13 mg/dL (7-18); BUN/Creat Ratio 16.4 RATIO (10-20); Calcium,Total 9.5 mg/dL (8.5-10.1); Chloride 108 mmol/L (98-107); Creatinine, Serum 0.79 mg/dL (0.55-1.02); EST Glomerular Filtration Rate 87 mL/min (>60); Est Glom Filt Rate - Afr Amer 105 mL/min (>60); Glucose 103 mg/dL (74-106); Potassium 4.1 mmol/L (3.5-5.1); Sodium Level 141 mmol/L (136-145)
--- NOTE | 2022-08-23 17:07 | PCM.TILTTABL ---
Staff Staff: Beverley Pérez Summary Pre Test Resting HR: 92 Pre Test Resting BP: 146/82 Minimum Test HR: 78 Maximum Test HR: 107 Minimum Test BP: 113/68 Maximum Test BP: 127/73 Physician Tilt Table Report Patient's Physicians Primary Care Physician: Luis M Chew Indications/Diagnosis: Dizziness Procedure Comments: The patient was brought to the noninvasive lab in the postabsorptive nonsedated state. Informed consent was obtained. Initial vital signs as well as blood pressure was obtained with her initial EKG demonstrating sinus rhythm with a rate of 90 bpm and resting blood pressure 119/74 mmHg. The patient was then put in the 70 degree head upright tilt position for 20 minutes continuous EKG as well as blood pressure measurements were obtained. Patient maintained sinus rhythm throughout the recording as well as normal blood pressure. She did complain on occasion of having clammy fingers as well as tunnel vision. No hemodynamic changes of significance were noted. The patient completed the head upright tilt test. The patient was then put in the supine position and monitored for an additional 6 minutes. Blood pressure and heart rate were noted to be normal. Summary: Negative head upright tilt table with no clinical or hemodynamically significant abnormalities noted.
[2022-08-23 17:11] VITALS: BP 113/68; BP 127/73; BP 146/82
== END | disposition home or self-care (01) ==
PROVIDERS: PCP Family Medicine; Referring Provider Family Medicine; Visit Provider Family Medicine
DX: R00.2 Palpitations (principal); R42 Dizziness and giddiness
CPT/HCPCS: 36415; 80048; 84703; 85025; 93660; J7040; A4216

== ENCOUNTER → 2022-11-04 | Outpatient (CLI) | payer OTHER, SELFPAY ==
--- NOTE | 2022-11-04 02:30 | MASS_PTH ---
PATIENT: MANI ABREU LOC: LAB U#:[id number] AGE/SX: 37/F ROOM: RE11/04/[address]: Dr. Brock Chew MD : 1985 BED: DIS: 11/04/2022 SPEC #: [id number] RECD: 11/04/22 15:51 STATUS: JOYA REQ #: [id number] TAMICA: 11/04/22 02:[address]: Kodi Patterson DEPT: SURGICAL PATHOLOGY RECD BY: Elle Charles ENTERED: 11/07/22 10:26 SP TYPE: Mass OTHR DR: MD Dr. Kodi Bar MD Tissues: Axilla, NOS Procedures: Surgery Specimen Level IV Comments: @ Ordering doctor for SUIV edited from to @ by KARL at 11/07/22 1534 @ Submitting doctor edited from to @ by KARL at 11/07/22 1534 HEADER OPERATION: I & D of left axillary mass PRE-OP DIAGNOSIS: Left axillary mass TISSUE SUBMITTED: Left axillary mass tissue MICROSCOPIC DIAGNOSIS Left axillary mass tissue: Acute inflammation and abscess formation in the deep subcutaneous tissue. MARTINA:mariano 11/08/2022 MICROSCOPIC DESCRIPTION Slides are reviewed. GROSS DESCRIPTION Received in fixative is one container labeled with the patient's name and designated left axillary mass. The specimen consists of a piece of skin with underlying tissue measuring 2 x 0.3 cm and up to 1 cm in thickness. The specimen is inked, bisected and submitted entirely in one cassette. / MARTINA:mariano 11/07/2022 TC:2 CPT: 88705
[2022-11-04 12:35] LABS: Hematocrit 41.3 % (37-47); Hemoglobin 13.6 g/dL (12.0-15.0); Mean Corp Hgb Conc 32.9 g/dL (32-36); Mean Corpuscular Hgb 30.4 pg (27.0-32.0); Mean Corpuscular Volume 92.4 fL (81-99); Mean Platelet Vol. 8.8 fl (6.2-12.0); Platelet Count 273 K/mm3 (150-450); RBC Distribution Width CV 12.1 % (11.6-14.6); RBC Distribution Width SD 41.2 fl (35.1-43.9); Red Blood Count 4.47 M/mm3 (4.2-5.4); White Blood Count 7.1 K/mm3 (4.4-11.0)
[2022-11-04 12:43] LABS: CRP 9.43 mg/L (0.0-3.0)
== END | disposition home or self-care (01) ==
PROVIDERS: PCP Family Medicine; Referring Provider Family Medicine; Visit Provider Family Medicine
DX: N63.32 Unspecified lump in axillary tail of the left breast (principal); L02.429 Furuncle of limb, unspecified
CPT/HCPCS: 36415; 85027; 86140; 87070; 87075; 87077; 87186; 87205; 88305

== ENCOUNTER → 2022-11-07 | Outpatient (CLI) | payer OTHER, SELFPAY | END | disposition home or self-care (01) | LOC: LABSPEC 15:21 | PROVIDERS: PCP Family Medicine; Referring Provider Physician Assistant; Visit Provider Physician Assistant | DX: Z86.14 Personal history of Methicillin resistant Staphylococcus aureus infection (principal) | CPT/HCPCS: 87081 ==

== ENCOUNTER → 2022-11-10 | Outpatient (CLI) | payer OTHER, SELFPAY ==
--- NOTE | 2022-11-10 12:30 | US_ITS ---
STUDY: ULTRASOUND BREAST - LEFT REASON FOR EXAM: Female, 37 years old. Left axillary abscess with incision and drainage. TECHNIQUE: Axial and longitudinal images of the LEFT breast were performed with a high resolution ultrasound transducer. # OF IMAGES: 41 COMPARISON: None. FINDINGS: LEFT Breast: There is evidence of a prior incision and drainage of the abscess site left axilla. No deep soft tissue fluid collection is seen. US/Breast Limited Unilateral IMPRESSION: Status post incision and drainage of the left axillary abscess. No evidence of a deep soft tissue fluid collection. ASSESSMENT CATEGORY: BIRADS Category 2: Benign. A letter regarding these results will be sent to the patient by the facility within 30 days. Electronically Signed: Alexander Guadarrama MD at 15:22 EST ,
== END | disposition home or self-care (01) ==
LOC: OPUS 12:18
PROVIDERS: PCP Family Medicine; Visit Provider Surgery
DX: L02.412 Cutaneous abscess of left axilla (principal)
CPT/HCPCS: 76642

== ENCOUNTER → 2023-03-21 | Outpatient (CLI) | payer OTHER, SELFPAY ==
[2023-03-21 09:05] LABS: Vitamin B12 1100 pg/mL (211-911); Vitamin D,25 Hydroxy 103.2 ng/mL
[2023-03-21 09:19] LABS: Anion Gap 6 (5-15); BUN 12 mg/dL (7-18); BUN/Creat Ratio 13.8 RATIO (10-20); Chloride 106 mmol/L (98-107); Cholesterol 181 mg/dL (200); Creatinine, Serum 0.87 mg/dL (0.55-1.02); EST Glomerular Filtration Rate 77 mL/min (>60); Est Glom Filt Rate - Afr Amer 94 mL/min (>60); Glucose 107 mg/dL (74-106); High Density Lipoprotein 80 mg/dL; Potassium 3.8 mmol/L (3.5-5.1); Sodium Level 138 mmol/L (136-145); Triglycerides 64 mg/dL; Very Low Density Lipoprotein 13 mg/dL (5-40)
[2023-03-23 14:32] LABS: T4 Free Direct 0.94 ng/dL (0.76-1.46)
[2023-03-25 05:07] LABS: Thyroid Peroxidase AB < 9 IU/mL (0-34)
== END | disposition home or self-care (01) ==
LOC: LAB 07:53
PROVIDERS: PCP Family Medicine; Referring Provider Family Medicine; Visit Provider Family Medicine
DX: Z00.00 Encounter for general adult medical examination without abnormal findings (principal); R79.89 Other specified abnormal findings of blood chemistry
CPT/HCPCS: 36415; 80048; 80061; 82306; 82607; 84439; 84443; 86376

== ENCOUNTER → 2023-04-17 | Outpatient (CLI) | payer OTHER, SELFPAY ==
--- NOTE | 2023-04-17 14:38 | RAD_ITS ---
EXAM: XR CHEST, 2 VIEWS CLINICAL INDICATION: cough, ongoing. TECHNIQUE: Frontal and lateral views of the chest. COMPARISON: August 02, 2021 FINDINGS: LUNGS AND PLEURAL SPACES: Unremarkable. No consolidation or edema. No pneumothorax. No effusion. HEART: Unremarkable. Cardiac silhouette not enlarged. MEDIASTINUM: Central airways and mediastinal contour are unremarkable. BONES/JOINTS: Unremarkable. SOFT TISSUES: Unremarkable. RAD/Chest PA and Lateral IMPRESSION: No radiographic evidence of acute cardiopulmonary disease. Electronically Signed: Rebecca Haywood MD at 8:21 EDT ,
== END | disposition home or self-care (01) ==
LOC: MTRAD 14:36
PROVIDERS: PCP Family Medicine; Referring Provider Nurse Practitioner Family; Visit Provider Nurse Practitioner Family
DX: R05.9 Cough, unspecified (principal)
CPT/HCPCS: 71046

== ENCOUNTER → 2023-05-01 | Outpatient (CLI) | payer OTHER, SELFPAY ==
[2023-05-01 19:01] LABS: Free T3 2.3 pg/mL (2.18-3.98); T4 Free Direct 0.98 ng/dL (0.76-1.46); T4 Total, Thyroxin 9.3 ug/dL (4.8-13.9); Thyroid Stim Hormone (TSH) 2.01 uIU/mL (0.358-3.74)
== END | disposition home or self-care (01) ==
LOC: MFPLAB 16:31
PROVIDERS: Nurse Practitioner Family; PCP Family Medicine; Visit Provider Family Medicine
DX: R79.89 Other specified abnormal findings of blood chemistry (principal)
CPT/HCPCS: 36415; 84436; 84439; 84443; 84481

== ENCOUNTER → 2023-06-05 | Outpatient (CLI) | payer OTHER, SELFPAY ==
--- NOTE | 2023-06-05 12:54 | BI_ITS ---
MAMMOGRAPHY - BILATERAL SCREENING REASON FOR EXAM: Female, 38 years old. Routine annual screening examination. PERTINENT HISTORY: Grandmother with breast cancer. TECHNIQUE: Digital bilateral breast mojgan (3D mammographic acquisition) in the CC and MLO projections. 2-D mediolateral oblique (MLO) and craniocaudad (CC) views of both breasts were obtained. CAD: Full Field Digital Mammography with Computer Added Detection was performed. COMPARISON: Comparison is made with prior study dated March 04, 2020 and February 12, 2019. FINDINGS: Breast Composition: The breasts are extremely dense, which lowers the sensitivity of mammography. There are no dominant masses or suspicious calcifications. A tissue clip marker is once again seen in the deep upper lateral aspect of the left breast. No other significant abnormalities are identified. There has been no significant change since the prior study. BI/SCRN MAMM (CAD)W/MOJGAN BILAT IMPRESSION: Stable bilateral screening mammogram. Yearly follow-up mammogram recommended. (A) ASSESSMENT CATEGORY: BIRADS Category 2: Benign. A letter regarding these results will be sent to the patient by the facility within 30 days. Approximately 10% of breast cancers are not detected by mammography. A normal mammogram should not delay biopsy of a clinically suspicious abnormality. [id number] Electronically Signed: Alexander Guadarrama MD at 14:01 EDT ,
== END | disposition home or self-care (01) ==
LOC: OPBI 12:54
PROVIDERS: PCP Family Medicine; Referring Provider Nurse Practitioner Women's Health; Visit Provider Nurse Practitioner Women's Health
DX: Z12.31 Encounter for screening mammogram for malignant neoplasm of breast (principal)
CPT/HCPCS: 77063; 77067

== ENCOUNTER → 2023-08-14 | Outpatient (CLI) | payer OTHER, SELFPAY ==
[2023-08-14 15:57] LABS: Bacteria 0 SEEN /hpf (None Seen); Mucous, Urine 0 SEEN /hpf (<or=2+); Red Blood Cells-Urine 0 SEEN /hpf (0-5)
[2023-08-14 18:18] LABS: Color, Urine Straw (Yellow); Glucose, Dipstick Normal (Normal); Ketone-Dipstick Negative (Negative); Leukocyte Esterase-Dipstick 25 /ul (Negative); Nitrite-Dipstick Negative (Negative); Occult Blood-Urine Negative /ul (Negative); Protein-Dipstick Negative (Negative); Urine Bilirubin Dipstick Negative (Negative); Urine Clarity Sl. Cloudy (Clear); Urine Urobilinogen Normal (Normal); Urine pH 6.5 (5.0 - 8.0)
[2023-08-14 18:24] LABS: Squamous Epithelial Cells - UA 0-5 SEEN /hpf (5-10); White Blood Cells 0-5 SEEN /hpf (0-5)
== END | disposition home or self-care (01) ==
LOC: MFPLAB 15:55
PROVIDERS: PCP Family Medicine; Visit Provider Family Medicine
DX: R30.0 Dysuria (principal)
CPT/HCPCS: 81001; 87086

== ENCOUNTER → 2024-01-01 | Outpatient (CLI) | payer OTHER, SELFPAY ==
--- NOTE | 2024-01-01 14:22 | US_ITS ---
STUDY: ULTRASOUND BREAST - LEFT REASON FOR EXAM: Female, 38 years old. Palpable mass TECHNIQUE: Axial and longitudinal images of the LEFT breast were performed with a high resolution ultrasound transducer. # OF IMAGES: 19 COMPARISON: Diagnostic mammogram earlier today FINDINGS: LEFT Breast: Heterogeneous background echotexture. At 2:00, 5 cm from the nipple, in the area of the palpable abnormality, ultrasound does not demonstrate a discrete solid or cystic mass most consistent with normal breast parenchyma.: US/Breast Limited Unilateral IMPRESSION: Normal diagnostic mammogram and left breast ultrasound. However, biopsy of any palpable abnormality should be performed if clinically indicated. ASSESSMENT CATEGORY: BIRADS Category 1: Negative. A letter regarding these results will be sent to the patient by the facility within 30 days. Electronically Signed: Simon Reid MD at 8:45 EST ,
--- NOTE | 2024-01-01 14:22 | BI_ITS ---
MAMMOGRAPHY - UNILATERAL DIAGNOSTIC: LEFT BREAST REASON FOR EXAM: Female, 38 years old. left breast mass PERTINENT HISTORY: Non-contributory. TECHNIQUE: Digital examination. Mediolateral oblique (MLO) and craniocaudad (CC) views of the breast were obtained. CAD: CAD was performed on this study. COMPARISON: 06/05/2023 FINDINGS: Breast Composition: The breasts are heterogeneously dense, which may obscure small masses. There are no dominant masses or suspicious calcifications. No other significant abnormalities are identified. No change in the marking clip in the upper-outer quadrant of the left breast. BI/DIAG MAMM W/CAD, UNILAT IMPRESSION: Stable unilateral diagnostic mammogram. Ultrasound of the palpable abnormality will be obtained. ASSESSMENT CATEGORY: BIRADS Category 0: Incomplete. Need additional imaging evaluation. A letter regarding these results will be sent to the patient by the facility within 30 days. FOLLOW-UP RECOMMENDATION: Ultrasound recommended. (I) Approximately 10% of breast cancers are not detected by mammography. A normal mammogram should not delay biopsy of a clinically suspicious abnormality. Electronically Signed: Simon Reid MD at 8:44 EST ,
--- OUTSIDE RECORDS SUMMARY | 2024-01-01 17:22 | XMS RPT_ITS | CCD ---
Author Name Unknown Address [address] [place] [address] Organization [facility] Care Team Providers Care Weatherization Field Technician Name Role Phone Javid Jimenes Unavailable ZACH HERNANDEZ Primary Care Unavailabl e Allergies Allergy Classification Reported Allergen(s) Allergy Type Date of Onset Reaction(s) Facility (3 sources) amitriptyline; Translations: [AMITRIPTYLINE HCL] Drug Allergy 7 [facility] Work Phone: (2 sources) Seasonal allergy; Translations: [SEASONAL] allergy to substance 7 [facility] Work Phone: (1 source) OTHER; Translations: [OTHER] Propensity to adverse reactions (disorder) 9 [facility] Medications Completed/Discontinued Medications Medication Drug Class(es) Dates Sig (Normalized) Sig (Original) montelukast 10 mg oral tablet (2 sources) Leukotriene Receptor Antagonist Start: 09-05-2017 SINGULAIR 10 MG TABS as directed MONTELUKAST SODIUM [id number] Javid MIJARES sertraline 100 mg oral tablet (2 sources) Serotonin Reuptake Inhibitor Start: 09-05-2017 ZOLOFT 100 MG TABS as directed SERTRALINE HCL [id number] Javid MIJARES Problems Problem Classification Problem Date Documented Da te Episodic/Chronic Unclassified (2 sources) Physical examination; Translations: [Encounter for general adult medical examination without abnormal findings] Onset: 09-05-2017 09-05-2017 Results Test Name Value Interpretation Reference Range Facil ity Vital Signs Date Time Vital Sign Value Performing Clinician Faci lity 09-05-2017 10:49-0500 BMI (Body Mass Index) 29.63 kg/m2 Javid MIJARES [facility] Work Phone: 09-05-2017 10:49-0500 Body Temperature 99.3 [degF] Javid MIJARES [facility] Work Phone: 09-05-2017 10:49-0500 BP Diastolic 80 mm[Hg] Javid MIJARES [facility] Work Phone: 09-05-2017 10:49-0500 BP Systolic 124 mm[Hg] Javid MIJARES [facility] Work Phone: 09-05-2017 10:49-0500 Height 157.48 cm Javid MIJARES [facility] Work Phone: 09-05-2017 10:49-0500 Pulse (Heart Rate) 80 /min Javid MIJARES [facility] Work Phone: 09-05-2017 10:49-0500 Respiratory Rate 12 /min Javid MIJARES [facility] Work Phone: 09-05-2017 10:49-0500 Weight 73.48 kg Javid MIJARES [facility] Work Phone: Encounters Encounter Date Encounter Type Care Provider Facility Start: 08-23-2022 End: 08-23-2022 [facility] Facility:[facility] Procedures Date Procedure Procedure Detail Performing Clinician Start: 09-05-2017 End: 09-05-2017 Pre-employment [employer] Javid MIJARES Work Phone: Plan of Treatment Date Care Activity Detail Author Start: 09-05-2017 End: 09-05-2017 Appointment Appointment [facility] Work Phone: [facility] Work Phone: Payers Date Payer Category Payer Private Health Insurance [id number] Progress note 08-23-2022 Note Date & Type Note Facility 08-23-2022 Note HNO ID: [id number] Author: Kae Ahuja APRN.[employer] Service: ? Author Type: Nurse Practitioner Type: Progress Notes Filed: 08/23/2022 7:02 PM Note Text: This note was created using NoteWriter. Subjective Sharyn Montez is a 37 year old female. 37 year old female with no PMH presents with complaints of facial infection. Acute onset 2 weeks ago Locates the area in front forehead scalp. Endorses that it was like a pimple. States that she has poke and pried at the area Endorses that +purulent drainage has erupted from the area Yesterday she went and had her hair colored. States that the area seems to be swelling and increasing in pain. Denies fever or chills Endorses she has had history of same in past. The history is provided by the patient. No sign language instructor was used. Abscess This is a new problem. The current episode started 1 to 4 weeks ago. The problem occurs constantly. The problem has been unchanged. Pertinent negatives include no abdominal pain, anorexia, arthralgias, change in bowel habit, chest pain, chills, congestion, coughing, diaphoresis, fatigue, fever, headaches, joint swelling, myalgias, nausea, neck pain, numbness, rash, sore throat, swollen glands, urinary symptoms, vertigo, visual change, vomiting or weakness. Exacerbated by: touchgin. Treatments tried: squeezing the area. The treatment provided no relief. PAST MEDICAL HISTORY Diagnosis Date Dysmenorrhea External hemorrhoids without mention of complication Hemorrhage of gastrointestinal tract, unspecified PAST SURGICAL HISTORY Procedure Laterality Date ANESTH, SECTION D+C HYSTERECTOMY HX LAPAROSCOPIC APPENDECTOMY 07/07/13 early appendicitis NONE SIGMOIDOSCOPY FLX DX W/COLLJ SPEC BR/WA IF PFRMD 04/27/09 TUBAL LIGATION HX ALLERGIES Amitriptyline Hcl and Environmental Allergies [Other] MEDICATIONS ferrous sulfate 325 mg (65 mg iron) tablet Take 325 mg by mouth daily with breakfast. cholecalciferol (VITAMIN D3) 5,000 unit tab Take 5,000 Units by mouth once daily. cyanocobalamin, vitamin B-12, (VITAMIN B-12 INJECTION) 1,000 mcg by INJECTION(UNSPECIFIED PARENTERAL ROUTES) route once every month. sertraline (ZOLOFT) 100 mg tablet Take 100 mg by mouth once daily. levocetirizine dihydrochloride(XYZAL 5 MG TAB) Take one(1) tablet daily as needed. sulfamethoxazole-trimethoprim (BACTRIM DS) 800-160 mg per tablet Take 1 tablet by mouth twice daily for 7 days. cephALEXin (KEFLEX) 500 mg capsule Take 1 capsule by mouth four times daily for 10 days. progesterone micronized (PROMETRIUM) 200 mg capsule Take 200 mg by mouth once daily. (Patient not taking: Reported on 08/23/2022) MONTELUKAST SODIUM (SINGULAIR ORAL) Take by mouth. (Patient not taking: Reported on 08/23/2022) guaiFENesin (MUCINEX) 600 mg 12 hr tablet [...] needed. (Patient not taking: No sig reported) FAMILY HISTORY Problem Relation Age of Onset Hyperlipidemia Mother Hypertension Father Hyperlipidemia Father COPD Paternal Grandmother Hypertension Paternal Grandfather Cancer Maternal Grandfather kidney Heart disease Maternal Grandfather No Known Problems Sister Cancer Maternal Grandmother uterine/stomach/bone Social History Tobacco Use Smoking status: Former Packs/day: 0.50 Years: 7.00 Pack years: 3.50 Types: Cigarettes Smokeless tobacco: Never Substance Use Topics Alcohol use: No Drug use: No Review of Systems Constitutional: Negative for chills, diaphoresis, fatigue and fever. HENT: Negative for congestion and sore throat. Respiratory: Negative for apnea, cough, choking and chest tightness. Cardiovascular: Negative for chest pain, palpitations and leg swelling. Gastrointestinal: Negative for abdominal pain, anorexia, change in bowel habit, nausea and vomiting. Musculoskeletal: Negative for arthralgias, joint swelling, myalgias and neck pain. Skin: Negative for color change, pallor and rash. Allergic/Immunologic: Positive for environmental allergies. Negative for food allergies and immunocompromised state. Neurological: Negative for dizziness, vertigo, facial asymmetry, weakness, numbness and headaches. Hematological: Negative for adenopathy. Does not bruise/bleed easily. Psychiatric/Behavioral: Negative for agitation and behavioral problems. Objective BP 126/72 Pulse 86 Temp 37.2 ?C (99 ?F) Resp 16 Wt 80.3 kg (177 lb) LMP 11/19/2016 SpO2 99% BMI 31.35 kg/m? Physical Exam Vitals and nursing note reviewed. Constitutional: General: She is not in acute distress. Appearance: Normal appearance. She is normal weight. She is not ill-appearing, to (more content not included)... [facility] Summary Purpose Family History No Family History Records Found Advance Directives No Advanced Directives Records Found Additional Source Comments INFORMATION SOURCE (unrecogn ized section and content) FOR RECORDS PERTAINING TO PATIENTS WHO ARE OR HAVE BEEN ENROLLED IN A CHEMICAL DEPENDENCY/SUBSTANCEABUSE PROGRAM, SOME INFORMATION MAY BE OMITTED. This clinical summary was aggregated from multiple sources. Caution should be exercised in using it in the provision of clinical care. This summary normalizes information from multiple sources, and as a consequence, information in this document may materially change the coding, format and clinical context of patient data. In addition, data may be omitted in some cases. CLINICAL DECISIONS SHOULD BE BASED ON THE PRIMARY CLINICAL RECORDS. [facility]. provides no warranty or guarantee of the accuracy or completeness of information in this document.
== END | disposition home or self-care (01) ==
PROVIDERS: PCP Family Medicine; Referring Provider Nurse Practitioner Women's Health; Visit Provider Nurse Practitioner Women's Health
DX: N63.20 Unspecified lump in the left breast, unspecified quadrant (principal)
CPT/HCPCS: 76642; 77061; 77065; G0279

== ENCOUNTER → 2024-03-26 | Outpatient (CLI) | payer OTHER, SELFPAY ==
[2024-03-26 11:04] LABS: ALB/GLOB Ratio 1.2 RATIO (0.9-2.4); AST(SGOT) 16 U/L (15-37); Alanine Aminotransfer ALT/SGPT 23 U/L (13-56); Albumin, Serum 3.6 g/dL (3.2-5.0); Alkaline Phosphatase 40 U/L (45-117); Anion Gap 8 (5-15); BUN 14 mg/dL (7-18); BUN/Creat Ratio 15.9 RATIO (10-20); Calcium,Total 8.9 mg/dL (8.5-10.1); Chloride 103 mmol/L (98-107); Cholesterol 152 mg/dL (200); Creatinine, Serum 0.88 mg/dL (0.55-1.02); EST Glomerular Filtration Rate 76 mL/min (>60); Est Glom Filt Rate - Afr Amer 92 mL/min (>60); Globulin 2.9 g/dL (2.2-4.2); Glucose 82 mg/dL (74-106); High Density Lipoprotein 70 mg/dL; Potassium 3.8 mmol/L (3.5-5.1); Protein, Total 6.5 g/dL (6.4-8.2); Sodium Level 138 mmol/L (136-145); T4 Free Direct 0.95 ng/dL (0.76-1.46); Triglycerides 35 mg/dL; Very Low Density Lipoprotein 7 mg/dL (5-40)
[2024-03-26 12:10] LABS: Vitamin D,25 Hydroxy 139.2 ng/mL
[2024-03-27 04:07] LABS: Thyroid Peroxidase AB < 9 IU/mL (0-34)
== END | disposition home or self-care (01) ==
LOC: MTLAB 07:43
PROVIDERS: PCP Family Medicine; Referring Provider Family Medicine; Visit Provider Family Medicine
DX: Z00.00 Encounter for general adult medical examination without abnormal findings (principal); R79.89 Other specified abnormal findings of blood chemistry; E55.9 Vitamin D deficiency, unspecified
CPT/HCPCS: 36415; 80053; 80061; 82306; 84439; 86376

== ENCOUNTER → 2024-07-03 | Outpatient (CLI) | payer OTHER, SELFPAY ==
[2024-07-03 17:35] LABS: Hematocrit 41.2 % (37-47); Hemoglobin 13.4 g/dL (12.0-15.0); Mean Corp Hgb Conc 32.5 g/dL (32-36); Mean Corpuscular Hgb 29.6 pg (27.0-32.0); Mean Corpuscular Volume 90.9 fL (81-99); Mean Platelet Vol. 9.2 fl (6.2-12.0); Platelet Count 290 K/mm3 (150-450); RBC Distribution Width CV 12.1 % (11.6-14.6); RBC Distribution Width SD 40.3 fl (35.1-43.9); Red Blood Count 4.53 M/mm3 (4.2-5.4); White Blood Count 6.6 K/mm3 (4.4-11.0)
[2024-07-03 18:11] LABS: Anion Gap 5 (5-15); BUN 16 mg/dL (7-18); BUN/Creat Ratio 22.5 RATIO (10-20); Calcium,Total 9.5 mg/dL (8.5-10.1); Chloride 103 mmol/L (98-107); Creatinine, Serum 0.71 mg/dL (0.55-1.02); EST Glomerular Filtration Rate 97 mL/min (>60); Est Glom Filt Rate - Afr Amer 118 mL/min (>60); Ferritin 101 ng/mL (8-252); Glucose 79 mg/dL (74-106); Iron 84 ug/dL (50-170); Potassium 3.8 mmol/L (3.5-5.1); Sodium Level 137 mmol/L (136-145); Vitamin B12 556 pg/mL (211-911)
== END | disposition home or self-care (01) ==
LOC: MFPLAB 16:20
PROVIDERS: PCP Family Medicine; Visit Provider Family Medicine
DX: E55.9 Vitamin D deficiency, unspecified (principal); E53.8 Deficiency of other specified B group vitamins; E16.2 Hypoglycemia, unspecified; E61.1 Iron deficiency
CPT/HCPCS: 36415; 80048; 82306; 82607; 82728; 83540; 85027

== ENCOUNTER → 2024-11-06 | Outpatient (CLI) | payer OTHER, SELFPAY ==
--- NOTE | 2024-11-06 17:26 | RAD_ITS ---
STUDY: X-RAY CHEST REASON FOR EXAM: Female, 39 years old. cough and sob TECHNIQUE: Frontal and lateral views of the chest. COMPARISON: 04/17/2023. FINDINGS: The lungs are clear and expanded. There is no demonstrated pleural abnormality. Normal size heart. Normal mediastinum and luci. Normal visualized pulmonary arteries. Normal visualized aortic arch and descending thoracic aorta. Normal visualized thoracic spine. Normal visualized ribs, clavicles, and shoulders. There is no demonstrated abnormality of the visualized soft tissue structures of the upper abdomen. RAD/Chest PA and Lateral IMPRESSION: Normal x-ray examination of the chest. Electronically Signed: Sourav Rome MD at 18:48 EST ,
== END | disposition home or self-care (01) ==
LOC: MTRAD 17:26
PROVIDERS: PCP Family Medicine; Referring Provider Family Medicine; Visit Provider Family Medicine
DX: R06.09 Other forms of dyspnea (principal); R05.9 Cough, unspecified
CPT/HCPCS: 71046

== ENCOUNTER → 2025-04-08 | Outpatient (CLI) | payer OTHER, SELFPAY ==
[2025-04-08 17:31] LABS: AST(SGOT) 26 U/L (<=31); Alanine Aminotransfer ALT/SGPT 19 U/L (<=34); Albumin, Serum 4.5 g/dL (3.5-5.0); Alkaline Phosphatase 41 U/L (35-104); Anion Gap 10 (5-15); BUN 12 mg/dL (4-19); BUN/Creat Ratio 12.6 RATIO (10-20); Bilirubin, Direct 0.33 mg/dL (0.00-0.30); Calcium,Total 9.6 mg/dL (7.6-11.0); Carbon Dioxide 26.1 mmol/L (21.0-32.0); Chloride 103 mmol/L (98-108); Cholesterol 185 mg/dL (<=200); Creatinine, Serum 0.91 mg/dL (0.70-1.20); EST Glomerular Filtration Rate 81 (>60); Globulin 2.5 g/dL (2.2-4.2); Glucose 84 mg/dL (70-99); High Density Lipoprotein 76 mg/dL; Low Density Lipoprotein Calc. 96 mg/dL; Potassium 4.4 mmol/L (3.3-5.1); Sodium Level 139 mmol/L (133-145); Total Bilirubin 0.85 mg/dL (0.00-1.30); Triglycerides 68 mg/dL; Very Low Density Lipoprotein 14 mg/dL (5-40); Vitamin B12 670 pg/mL (180-914); Vitamin D,25 Hydroxy 43.7 ng/mL (30-100); cholesterol:hdl ratio screen 2.44
[2025-04-08 17:39] LABS: Erythrocyte Sedimentation Rate 1 mm/hr (0-30)
== END | disposition home or self-care (01) ==
LOC: MTLAB 12:38
PROVIDERS: PCP Family Medicine; Referring Provider Family Medicine; Visit Provider Family Medicine
DX: K58.9 Irritable bowel syndrome, unspecified (principal); Z13.220 Encounter for screening for lipoid disorders; Z13.1 Encounter for screening for diabetes mellitus; E53.8 Deficiency of other specified B group vitamins; E55.9 Vitamin D deficiency, unspecified
CPT/HCPCS: 36415; 80048; 80061; 80076; 82306; 82607; 84443; 85652